=== PATIENT | female | born 1965 | race Caucasian/White ===

== ENCOUNTER 2024-08-27 09:52 | Outpatient (CLI) | payer OTHER, SELFPAY ==
--- NOTE | ~2024-08-27 | XR_ITS ---
XR abdomen/kub 1V Ordering provider: Benito Mendenhall MD History: . Right ureteral stone . Comparison: None. FINDINGS: BOWEL: Nonobstructive bowel gas pattern. Fecal material is loaded in the colon. ORGANOMEGALY: None. SIGNIFICANT PATHOLOGIC CALCIFICATIONS: None. OTHER: No free air is seen under the diaphragm. Dextroscoliosis. Degenerative changes of the spine. IMPRESSION: NO ACUTE ABDOMINAL FINDINGS. Constipation. Reviewed, dictated and finalized at location A.
== END 2024-08-27 09:53 | disposition home or self-care (01) ==
PROVIDERS: PCP Urology; Visit Provider Urology
DX: N20.1 Calculus of ureter (principal); K59.00 Constipation, unspecified
CPT/HCPCS: 74018

== ENCOUNTER 2024-09-08 19:41 | Observation (INO) | payer OTHER, SELFPAY ==
--- NOTE | ~2024-09-08 | CT_ITS ---
EXAMINATION: CT abdomen pelvis wo con DATE: 09/08/2024 20:39 INDICATION: Right abdominal pain and right flank pain. TECHNIQUE: Computed tomography (CT) of the abdomen and pelvis was performed without intravenous contr ast. Automated exposure control and iterative reconstruction technique were employed. The dose-length product was 478.89 mGy-cm. COMPARISON: None FINDINGS: Lung bases are clear. Heart size is normal. No pericardial or pleural effusion. Liver, gallbladder, s pleen, pancreas, bilateral adrenal glands and left kidney are normal. 4 mm and 3 mm obstructing stone s in the proximal right ureter with more proximal mild right hydroureteronephrosis and perinephric st randing. There is moderate sigmoid diverticulosis without adjacent inflammatory change to suggest div erticulitis. Small bowel and appendix are normal. 2 cm left adnexal cyst/follicle. Decompressed blad jt, anteverted uterus and right adnexa are unremarkable. No free intraperitoneal gas or fluid. No pa thologically enlarged abdominal or pelvic lymphadenopathy. Mild lumbar dextroscoliosis with moderate lumbar and lower thoracic spondylosis and severe and lower lumbar facet osteoarthritis. IMPRESSION: 1. Obstructing 4 mm and 3 mm stones in the proximal right ureter with mild and right hydroureteroneph rosis. Correlate with urinalysis to exclude associated ascending urinary tract infection. Reviewed, dictated and finalized at location A. IMPRESSION: 1. Obstructing 4 mm and 3 mm stones in the proximal right ureter with mild and right hydroureteronephrosis. Correlate with urinalysis to exclude associated as cending urinary tract infection.
--- NOTE | ~2024-09-08 | XR_ITS ---
EXAMINATION: XR retrograde pyelo w/stent RT DATE: 09/09/2024 13:21 INDICATION: Right internal ureteral stent placement TECHNIQUE: Fluoroscopic images from a right internal ureteral stent placement are submitted for jewels colby 199 seconds of fluoroscopy time. FINDINGS: There is a right double-J internal ureteral stent projecting in expected position, with proximal [place] loop at the level of the renal pelvis and distal loop in the pelvis within the bladder lumen. IMPRESSION: 1. Right internal ureteral stent placement. Please refer to real-time procedural findings for elton ls. Reviewed, dictated and finalized at location B. IMPRESSION: 1. Right internal ureteral stent placement. Please refer to real-time procedu ral findings for details.
--- OUTSIDE RECORDS SUMMARY | 2024-09-08 19:44 | XMS_ITS | Encounter Summary ---
Author Organization [facility] Address [facility] [place] [address] Care Team Providers Care Loan Funder Name Role Phone Chanelle Martinez EILEEN Primary Care Provider Encounter Details Date Type Department Care Team ([facility] st Contact Info) Description 09/01/2024 Results Follow-Up [facility] [address] [place] [address] Lizzy Garcia, SHEET METAL CONTRACTOR [address] [place] [address] VAGINITIS SCREEN (VDS) Social History Tobacco Use Types Packs/Day Years Used Date Smoking Tobacco: Former Cigarettes 1 32 Smokeless Tobacco: Never 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 Alcohol Use Standard Drinks/Week Comments No 0 (1 standard drink = 0.6 oz pur e alcohol) B1300 Health Literacy Answer Date Recor ded How often do you need to hav e someone help you when you read instructions, pamphlets, or other written material from your doctor or pharmacy? Never 03/19/2024 [facility] Utilities Answer Date Recorded In the past 12 months has e [employer], gas, oil, or water company threatened to shut off services in your home? No 03/19/2024 Humiliation, Afraid, Rape, and Kick questionnair e Answer Date Recorded Within the last year, have y ou been afraid of your partner or ex-partner? No 03/19/2024 Within the last year, have y ou been humiliated or emotionally abused in other ways by your partner or ex-partner? No Within the last year, have y ou been kicked, hit, slapped, or otherwise physically hurt by your partner or ex-partner? No 03/19/2024 Within the last year, have y ou been raped or forced to have any kind of sexual activity by your partner or ex-partner? No 03/19/2024 Social Connection and Isolat ion Panel [NHANES] Answer Date Recorded In a typical week, how many times do you talk on the phone with family, friends, or neighbors? More than three times a week 03/19/2024 How often do you get togethe r with friends or relatives? More than three times a week 03/19/2024 How often do you attend chur or synagogue services? Never 03/19/2024 Do you belong to any clubs o r organizations such as shinto groups, unions, fraternal or athletic groups, or school groups? No 03/19/2024 How often do you attend meet ings of the clubs or organizations you belong to? Never 03/19/2024 Are you , , di vorced, , never , or living with a partner? 03/19/2024 AUDIT-C Answer Date Recorded Q1: How often do you have a drink containing alcohol? Never 03/19/2024 Q2: How many drinks containi ng alcohol do you have on a typical day when you are drinking? Patient does not drink Q3: How often do you have si x or more drinks on one occasion? Never 03/19/2024 Overall Financial Resource Strain (CARDIA) Answe r Date Recorded How hard is it for you to pa y for the very basics like food, housing, medical care, and heating? Not hard at all 03/19/2024 PHQ-2 Answer Date Recorded Patient Health Questionnaire-2 Score 0 05/28/2024 [facility] - Occupational Stress Questionnaire Answer Date Recorded Do you feel stress - tense, restless, nervous, or anxious, or unable to sleep at night because your mind is troubled all the time - these days? Only a little 03/19/2024 Exercise Vital Sign Answer Date Recorde d On average, how many days pe r week do you engage in moderate to strenuous exercise (like a brisk walk)? 0 days 03/19/2024 On average, how many minutes do you engage in exercise at this level? 0 min 03/19/2024 Hunger Vital Sign Answer Date Recorded Within the past 12 months, y ou worried that your food would run out before you got the money to buy more. Never true 03/19/19 25 Within the past 12 months, t he food you bought just didn't last and you didn't have money to get more. Never true 03/19/2024 PRAPARE - Transportation Answer Date Re corded In the past 12 months, has l ack of transportation kept you from medical appointments or from getting medications? No 02/26 In the past 12 months, has l ack of transportation kept you from meetings, work, or from getting things needed for daily living? No 03/19/2024 Housing Stability Vital Sign Answer Artie e Recorded In the last 12 months, was t here a time when you were not able to pay the mortgage or rent on time? No 03/19/2024 In the past 12 months, how m any times have you moved where you were living? 0 03/19/2024 At any time in the past 12 m [facility], were you homeless or living in a group home (including now)? No 03/19/2024 Comments No Sex and Gender Information Value Date Recorded Sex Assigned at Female 03/19/2024 11:21 AM [employer] Sex Female 8:23 PM CDT Gender Identity Female 06/16/2024 2:23 PM CDT Sexual Orientation Not on file documented as of this encounter Functional Status * Are you deaf or do you have serious difficulty hearing Answer Date of Assessment Author Status No 03/25/2024 11:00 AM Yun Burk R N Active * Are you blind or do you have serious difficulty seeing, even when wearing glasses? Answer Date of Assessment Author Status No 03/25/2024 11:00 AM Yun Burk R N Active * Do you have serious difficulty walking or climbing stairs? Answer Date of Assessment Author Status No 03/25/2024 11:00 AM Yun Burk R N Active * Do you have difficulty dressing or bathing? Answer Date of Assessment Author Status No 03/25/2024 11:00 AM BRE[employer]OSS Yun Leiva R N Active * Because of a physical, mental, or emotional condition, do you have difficulty doing errands alone such as visiting a doctor's office or shopping? Answer Date of Assessment Author Status No 03/25/2024 11:00 AM [employer] Yun Leiva R N Active documented as of this encounter Mental Status * Because of a physical, mental, or emotional condition, do you have serious difficulty concentrating, remembering, or making decisions? Answer Entry Date Author Status No 03/25/2024 11:00 AM [employer] Yun Leiva R N Active documented in this encounter Progress Notes * Mila Stark MA - 09/01/2024 8:14 AM CDT Pt notified. Verbalized understanding. See message from provider, rx was sent. documented in this encounter Plan of Treatment Upcoming Encounters Date Type Department Care Team (Late st Contact Info) Description 10/07/2024 4:00 PM CDT Office Visit [facility] [address] [facility] [place] [address] Chanelle Martinez FNP [address] [place] [address] [place] [id number] documented as of this encounter Visit Diagnoses Diagnosis Bacterial vaginosis- Primary Vaginitis and vulvovaginitis, unspecified documented in this encounter Additional Health Concerns Assessment Noted Time PHQ-9 Depression Total Score: 1 02/04/20 21 9:50 AM [employer] documented as of this encounter Care Teams Loan Funder Relationship Specialty Start Date End Date Chanelle Martinez FNP [address] [place] [address] [place] [id number] PCP - General Nurse Practitioner Family 01/10/18 documented as of this encounter
--- OUTSIDE RECORDS SUMMARY | 2024-09-08 19:44 | XMS_ITS | Clinical Summary ---
Author Organization [facility] Address [facility] [place] [address] Care Team Providers Care Senior Client Advisor Name Role Phone Chanelle Martinez INSTRUCTOR OF EDUCATION Primary Care Provider [phone] Allergies Active Allergy Reactions Criticality Noted Date Comments Sulfa Antibiotics Unknown 07/06/2011 Medications loratadine 10 MG tablet Take 1 tablet (10 mg total) by mouth daily. Active Potassium 99 MG tabletIndication s:care home current use of diuretic Take 1 tablet by mouth daily. 90 tablet 1 11/23/19 22 Active Cimetidine 800 MG TabIndications:U rticaria, chronic Take 1 tablet by mouth 2 (two) times a day. 180 tablet 1 11/24/19 23 Active furosemide (LASIX) 20 MG tabletIndication s:Bilateral leg edema Take one tab daily as needed for ankle swelling 90 tablet 1 11/24/19 23 Active budesonide-glyco pyrrolate-formot jamel (BREZTRI AEROSPHERE) 160-9-4.8 MCG/ACT inhalerIndicatio ns:Centrilobular emphysema (CMS/HCC HHS/HCC) Inhale 2 puffs into the lungs daily. 10.7 g 5 01/21/20 24 Active Multiple Vitamin (MULTIVITAMIN ADULT OR) Take 1 tablet by mouth daily. Active ferrous sulfate, 65 mg elemental, 325 (65 FE) MG tablet Take 1 tablet (325 mg total) by mouth daily as needed. Active probiotic (FLORAJEN3) Cap capsuleIndicatio ns:Pneumonia due to infectious organism, unspecified laterality, unspecified part of lung Take 1 capsule by mouth daily with breakfast. 10 capsule 03/27/19 25 Active albuterol sulfate HFA (VENTOLIN HFA) 108 (90 Base) MCG/ACT inhalerIndicatio ns:Mild intermittent reactive airway disease without complication (HHS/HCC) Inhale 1-2 puffs into the lungs every 6 (six) hours as needed for Wheezing. 18 g 03/31/19 25 Active NEBULIZER DEVICE, DME,Indications: Pneumonia of both lower lobes due to infectious organism Take 1 Device by nebulization every 4 (four) hours as needed. 1 Device 1 04/28/19 25 Active ipratropium-albu terol (DUONEB) 0.5-2.5 (3) MG/3ML SolutionIndicati ons:Pneumonia of both lower lobes due to infectious organism Take 3 mLs by nebulization every 4 (four) hours as needed. 360 mL 11 04/28/19 25 Active atorvastatin (LIPITOR) 20 MG tabletIndication s:Hyperlipidemia Take 1 tablet (20 mg total) by mouth nightly at bedtime. 90 tablet 3 07/01/19 25 Active lisinopril (PRINIVIL) 2.5 MG tabletIndication s:Primary hypertension Take 1 tablet (2.5 mg total) by mouth daily. 90 tablet 07/08/19 25 Active tamsulosin (FLOMAX) 0.4 MG Cap Take 1 capsule (0.4 mg total) by mouth daily. 15 capsule 08/22/19 25 Active ondansetron (ZOFRAN) 4 MG tablet Take 1 tablet (4 mg total) by mouth every 8 (eight) hours as needed for Nausea. 15 tablet 08/22/19 25 Active omeprazole (PRILOSEC) 40 MG capsuleIndicatio ns:Hiatal hernia with GERD Take 1 capsule (40 mg total) by mouth daily. 60 capsule 09/01/19 25 Active metroNIDAZOLE (FLAGYL) 500 MG tabletIndication s:Bacterial vaginosis Take 1 tablet (500 mg total) by mouth 2 (two) times a day for 7 days. 14 tablet 09/02/19 25 025 Active omeprazole (PRILOSEC) 20 MG capsule Take 2 capsules (40 mg total) by mouth daily. 025 Discontinu ed(Reorder ) HYDROcodone-acet aminophen (NORCO) 5-325 MG tabletIndication s:Acute Pain < 7 Day Supply Take 1-2 tablets by mouth every 8 (eight) hours as needed for Pain. Indications: Acute Pain < 7 Day Supply 25 tablet 08/22/19 25 025 cefdinir (OMNICEF) 300 MG Cap capsule Take 1 capsule (300 mg total) by mouth 2 (two) times daily for 7 days. 14 capsule 08/22/19 25 025 fluconazole (DIFLUCAN) 150 MG tabletIndication s:Acute vaginitis Take 1 tablet (150 mg total) by mouth every third day for 2 doses. 2 tablet 09/01/19 25 025 Active Problems Problem Noted Date Diagnosed Date Mixed hyperlipidemia 07/07/2024 Primary hypertension 07/07/2024 Pneumonia 03/25/2024 COVID 03/19/2024 Chronic bilateral low back pain without sciatica 2020 Mild intermittent reactive a irway disease without complication ([facility]) 2020 Urticaria, chronic 04/11/2018 Asthma ([facility]) 04/11/2018 Hot flashes due to menopause 04/11/2018 Class 2 obesity due to exces s calories with body mass index (BMI) of 36.0 to 36.9 in adult 07/06/2011 COPD (chronic obstructive pu lmonary disease) with emphysema ([facility]) Resolved Problems Problem Noted Date Diagnosed Date Resolved Date Tobacco abuse 11/07/2012 10/27/2021 Overview (04/11/2018): Date Onset: 11/07/2012 Hypothyroidism 07/06/2011 03/09/2020 Encounters Date Type Department Care Team Description 09/01/2024 6:39 AM CDT - 09/01/2024 11:59 PM CDT Hospital Encounter [facility] [address] [place] [address] Elise Diallo MD Discharge Disposition: Home or Self Care (Routine Discharge) 09/01/2024 Results Follow-Up [facility] [address] [place] [address] Lizzy Garcia APRN VAGINITIS SCREEN (VDS) 08/31/2024 10:28 AM CDT - 08/31/2024 11:59 PM CDT Hospital Encounter [facility] [address] [place] [address] Lizzy Garcia APRN Discharge Disposition: Home or Self Care (Routine Discharge) 08/31/2024 8:40 AM CDT Office Visit [facility] [address] [place] [address] Lizzy Garcia APRN Vaginal Problem (Hope is here today for possible yeast infection. She has been on antibiotics recently for kidney stones. She states this always happens when she takes antibiotics. Symptoms began Saturday. She has vaginal itching and some burning. There is a little discharge as well./-nkw) 08/31/2024 Orders Only [facility] [address] [place] [address] Lizzy Garcia APRN 08/31/2024 Travel 08/25/2024 Telephone [facility] [address] [place] [address] Chanelle Martinez FNP Follow Up Call 08/21/2024 3:37 PM CDT - 08/21/2024 7:30 PM CDT Emergency [facility] [address] [place] [address] Brice Pittman MD Abdominal Pain Discharge Disposition: Home or Self Care (Routine Discharge) 08/21/2024 Travel 07/14/2024 Telephone [facility] [address] [place] [address] Chanelle Martinez FNP Hair/Scalp Problem 07/07/2024 3:40 PM CDT Office Visit [facility] [address] [place] [address] Chanelle Martinez FNP Follow Up (3 week follow up/Would also like to discuss issues when she consumes milk and eggs) 07/07/2024 Travel 06/29/2024 Results Follow-Up [facility] [address] [place] [address] Chanelle Martinez FNP CBC W/DIFF AUTOMATED, COMPREHENSIVE METABOLIC PANEL, LIPID PANEL, Additional followed-up results: 2 06/27/2024 7:22 AM CDT - 06/27/2024 11:59 PM CDT Hospital Encounter [facility] [address] [place] [address] Chanelle Martinez FNP Discharge Disposition: Home or Self Care (Routine Discharge) 06/27/2024 Travel 06/16/2024 2:20 PM CDT Office Visit [facility] [address] [place] [address] Chanelle Martinez FNP Follow Up (2w on BP/) 06/16/2024 Travel from Last 3 Months Immunizations Immunization Administration Dates Next Due Fluzone (IIV3, Trivalent, 0. 5 ML Prefilled Syringe) 03/20/2024 Fluzone 6 Months+ Quad (0.5 mL Prefilled Syringe) 11/23/2022 Influenza (Generic) 12/07/2019, 7,12/22/2014,2013,12/17/2012 Influenza Adult (Generic) 01/04/2021,12/07/2019 MODERNA COVID-19 (12+) MRNA, LNP-S, PF, 100 MCG/ 0.5 ML DOSE 06/14/2020,05/17/2020 Pneumococcal (Pneumovax 23) 03/09/2020 Family History Medical History Relation Comments Asthma Father COPD Father Diabetes Mother Hypertension Mother Breast Cancer Paternal Aunt Breast Cancer Paternal Grandmother Relation Status Comments Father Alive Mother Alive Paternal Aunt Paternal Grandmother Social History Tobacco Use Types Packs/Day Years Used Date Smoking Tobacco: Former Cigarettes 1 32 Smokeless Tobacco: Never Tobacco Cessation:Counseling Given: No Comments:Provider to tour counselor. 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 Alcohol Use Standard Drinks/Week Comments No 0 (1 standard drink = 0.6 oz pur e alcohol) B1300 Health Literacy Answer Date Recor ded How often do you need to hav e someone help you when you read instructions, pamphlets, or other written material from your doctor or pharmacy? Never 03/19/2024 [facility] Utilities Answer Date Recorded In the past 12 months has e [employer], [employer], oil, or water [employer] threatened to shut off services in your [...] 03/19/2024 How often do you attend chur ch or sikhism services? Never 03/19/2024 Do you belong to any clubs o r organizations such as druze groups, unions, fraternal or athletic groups, or [...] Recorded Patient Health Questionnaire-2 Score 0 05/28/2024 [facility] Occupational Stress Questionnaire Answer Date Recorded [...] any time in the past 12 m [facility], were you homeless or living in a senior living (including now)? No 03/19/2024 Comments No Sex and Gender Information Value Date Recorded Sex Assigned at Female 03/19/2024 11:21 AM [employer] Legal Sex Female 8:23 PM CDT Gender Identity Female 06/16/2024 2:23 PM CDT Sexual Orientation Not on file Last Filed Vital Signs Vital Sign Reading Time Taken Comments Blood Pressure 118/66 08/31/2024 8:57 AM CDT Pulse 86 08/31/2024 8:57 AM CDT Temperature 36.6 C (97.9 F) 08/31/2024 8:57 AM CDT Respiratory Rate 16 08/31/2024 8:57 AM CDT Oxygen Saturation 96% 08/31/2024 8:57 AM CDT Inhaled Oxygen Concentration - - Weight 99.3 kg (219 lb) 08/31/2024 8:57 AM CDT Height 170.2 cm (5' 7) 08/31/2024 8:57 AM CDT Body Mass Index 34.3 08/31/2024 8:57 AM CDT Plan of Treatment Upcoming Encounters Date Type Department Care Team (Late st Contact Info) Description 10/07/2024 4:00 PM CDT Office Visit [facility] [address] [place] [address] Chanelle Martinez, [facility] [address] [place] [id number] Health Maintenance Due Date Last Done Comments Annual Physical 1968 Hepatitis C 11/09/1983 DTaP, Tdap and Td Vaccines ( 1 - Tdap) 1984 Hepatitis B Vaccines (1 of 3 - 19+ 3-dose series) 1984 Cervical Cancer Screening Pa p with HPV Testing (Age 30 to 64) Every 5 Years 11/09/1995 Cervical Cancer Screening Pa p Smear (Age 30 to 64) Every 3 Years 03/27/2015 03/27/2012 Cervical Cancer Screening wi th HPV 03/27/2015 Lung Cancer Screening 11/09/2015 Zoster Vaccines (1 of 2) 11/09/2015 Pneumococcal Vaccine: 50+ Years (2 of 2 - PCV) 03/09/2021 03/09/2020 COVID-19 Vaccine (2023-2 5 season) 2023 12/22/2020, 06/14/2020, 05/17/2020 Colorectal Cancer Screening FIT-DNA (3 Years) 02/11/2024 02/10/2021, 02/10/2021 Mammogram Screening 12/14/2024 12/14/2022 PHQ-2 (Physician Hancock) Completed 05/28/2024 Meningococcal B Vaccine Aged Out No l onger eligible based on patient's age to complete this topic Meningococcal Vaccine Aged Out No sara hellen eligible based on patient's age to complete this topic RSV Immunizations Under 20 Months Aged Out No longer eligible b ased on patient's age to complete this topic Procedures Procedure Name Priority Date/Time Associated Diagnosis Comments CT ABD+PEL WO CON STAT 09/01/2024 6:4 9 AM CDT Right ureteral stone VAGINITIS SCREEN (VDS) Routine 08/31/2024 9:09 AM CDT Vaginal itching URINE BACTERIA CULTURE Routine 08/21/2024 6:35 PM CDT URINALYSIS MICRO ONLY Routine 08/21/2024 6:35 PM CDT URINALYSIS AUTO DIP STAT 08/21/2024 6 [address] ABD+PEL WO CON STAT 08/21/2024 4:3 3 PM CDT XR CHEST PORTABLE STAT 08/21/2024 4:3 3 PM CDT LIPASE STAT 08/21/2024 3:43 PM CDT COMPREHENSIVE METABOLIC PANEL STAT 08/21/2024 3:43 PM CDT CBC W/DIFF AUTOMATED STAT 08/21/2024 3:43 PM CDT VITAMIN D, 25 OH Routine 06/27/2024 7:30 AM CDT Primary hypertension THYROID STIM HORMONE TSH Routine 06/27/2024 7:30 AM CDT Primary hypertension LIPID PANEL Routine 06/27/2024 7:30 AM CDT Primary hypertension COMPREHENSIVE METABOLIC PANEL Routine 06/27/2024 7:30 AM CDT Primary hypertension CBC W/DIFF AUTOMATED Routine 06/27/2024 7:30 AM CDT Primary hypertension MG SCREENING W ARIADNA GAIL DIGI Routine 12/14/2022 2:48 PM CDT Breast cancer screening by mammogram COLOGUARD (EXACT SCIENCE) Routine 02/10/2021 6:10 AM CASINO CASHIER Colon cancer screening THINPREP IMAGING PAP REFLEX HPV MRNA E6/E7 Routine 03/27/2012 9:15 AM CASINO CASHIER from Last 3 Months or Most Recently Relevant to Health Maintenance Results * CT ABD+PEL WO CON (09/01/2024 6:49 AM CDT) Only the most recent of2 resultswithin the time period is included. Anatomical Region Laterality Modality Abdomen Computed Tomogra phy 09/01/2024 6:51 AM CDT Impressions 09/01/2024 6:55 AM CDT IMPRESSION: Minimal right hydronephrosis, decreased compared to the prior examination. 6 mm stone in the proximal right ureter, unchanged in location from the prior exam. Referred By: ELISE DIALLO Interpreted By: Benjamin Freed MD, 09/01/2024 6:51 AM Narrative 09/01/2024 6:55 AM CDT [address] [place] [address] EXAMINATION: CT ABDOMEN/PELVIS WITHOUT CONTRAST INDICATION: Right ureteral stone COMPARISON: 08/21/2024 TECHNIQUE: Computed tomography of the abdomen, and pelvis was performed without administration of intravenous contrast. Sagittal and coronal reconstructions. Radiation dose reduction technique(s) were used. FINDINGS: Lower Chest: Lung bases are clear. No cardiomegaly or pericardial effusion. Tiny hiatal hernia. Upper abdominal organs: The liver is normal in size and configuration. There is no splenomegaly. There is no peripancreatic inflammation. There is no definite cholelithiasis. There are no adrenal masses. Right hydronephrosis, decreased compared to the prior examination. 6 mm stone in the proximal right ureter, unchanged in location from the prior exam. Vascular: The abdominal aorta is normal in caliber. Lymph nodes: No retroperitoneal, mesenteric, or inguinal lymphadenopathy. Gastrointestinal: No bowel obstruction or bowel wall thickening. Colonic diverticulosis. The appendix is normal. Miscellaneous: No free intraperitoneal air or ascites. Pelvis: No free pelvic fluid. The urinary bladder is normal. The uterus and adnexa are within normal limits. Musculoskeletal: No acute osseous abnormality or destructive bone lesions. Sclerosis of the anterior inferior right SI joint with degenerative changes. Procedure Note Benjamin Freed MD - 09/01/[address] [place] [address] EXAMINATION: CT ABDOMEN/PELVIS WITHOUT CONTRAST INDICATION: Right ureteral stone COMPARISON: 08/21/2024 TECHNIQUE: Computed tomography of the abdomen, and pelvis was performedwithout administration of intravenous contrast. Sagittal and coronalreconstructions. Radiation dose reduction technique(s) were used. FINDINGS: Lower Chest: Lung bases are clear. No cardiomegaly or pericardialeffusion. Tiny hiatal hernia. Upper abdominal organs: The liver is normal in size and configuration.There is no splenomegaly. There is no peripancreatic inflammation. Thereis no definite cholelithiasis. There are no adrenal masses. Righthydronephrosis, decreased compared to the prior examination. 6 mm stonein the proximal right ureter, unchanged in location from the prior exam. Vascular: The abdominal aorta is normal in caliber. Lymph nodes: No retroperitoneal, mesenteric, or inguinallymphadenopathy. Gastrointestinal: No bowel obstruction or bowel wall thickening. Colonicdiverticulosis. The appendix is normal. Miscellaneous: No free intraperitoneal air or ascites. Pelvis: No free pelvic fluid. The urinary bladder is normal. The uterusand adnexa are within normal limits. Musculoskeletal: No acute osseous abnormality or destructive bone lesions.Sclerosis of the anterior inferior right SI joint with degenerativechanges. IMPRESSION: Minimal right hydronephrosis, decreased compared to the prior examination.6 mm stone in the proximal right ureter, unchanged in location from theprior exam. Referred By: ELISE DIALLO Interpreted By: Benjamin Freed MD, 09/01/2024 6:51 AM us Elise Diallo MD CT Final Result * VAGINITIS SCREEN (VDS) (08/31/2024 9:09 AM CDT) SOURCE VAGINAL SPECIMEN 08/31/2024 7:13 PM CDT [facility] TRICHOMONAS NEGATIVE 08/31/2024 7:13 PM CDT [facility] Comment:NOT DETECTED BY DNA PROBE GARDNERELLA VAGINALIS POSITIVE 08/31/2024 7:13 PM CDT [facility] Comment:DETECTED BY DNA PROB E FREDI SPECIES NEGATIVE 7:13 PM CDT [facility] Comment:NOT DETECTED BY DNA PROBE VAGINAL STRUCTURE / Unknown 08/31/2024 9:09 AM CDT Lizzy Garcia APRN MICROBIOLOGY - GENERAL OR DERABLES Final Result [facility] [address] [place] [address], [id number] * (ABNORMAL) CULTURE URINE (08/21/2024 6:35 PM CDT) SPEC DESCRIPTION URINE CLEAN CATCH 08/21/2024 7:05 PM CDT [facility] SPECIAL REQUESTS NO SPECIAL REQUEST 08/21/2024 7:05 PM CDT [facility] CULTURE RESULT 50,000-100, 000 COL/ML ESCHERICHIA COLI (A) 08/24/2024 8:39 AM CDT [facility] URINE SPECIMEN OBTAINED BY CLEAN CATCH PROCEDURE / Unknown 08/21/2024 6:35 PM CDT 08/21/2024 7:11 PM CDT Narrative Organism Antibiotic Method Susceptibility Escherichia coli AMPICILLIN DENIS (VITEK) 4: Sensitive Escherichia coli AMPICILLIN/SULBACTAM DENIS (VITEK) <=2: Sensitive Escherichia coli CEFTRIAXONE DENIS (VITEK) <=1: Sensitive Escherichia coli CEFTAZIDIME DENIS (VITEK) <=1: Sensitive Escherichia coli CEFAZOLIN DENIS (VITEK) <=4: Sensitive Escherichia coli ESBL DNEIS (VITEK) NEG: Sensitive Escherichia coli NITROFURANTOIN DENIS (VITEK) <=16: Sensitive Escherichia coli GENTAMICIN DENIS (VITEK) <=1: Sensitive Escherichia coli LEVOFLOXACIN DENIS (VITEK) <=0.12: Sensitive Escherichia coli PIPRACIL/TAZO DENIS (VITEK) <=4: Sensitive Escherichia coli TRIMETH-SULFAMETH. DENIS (VITEK) <=20: Sensitive Brice Pittman MD MICROBIOLOGY - GENERAL [facility] Final Result [facility] [address] [place] [address], [facility] [address] [place] [address] [place] [address], [place] * (ABNORMAL) URINALYSIS AUTO DIP (08/21/2024 6:35 PM CDT) COLOR (U) YELLOW YELLOW 08/21/2024 6:47 PM CDT [facility] TRANSPARENCY HAZY(A) CLEAR 08/21/2024 6:47 PM CDT [facility] SPECIFIC GRAVITY (U) 1.023 1.001 - 1.030 08/21/2024 6:47 PM CDT [facility] U PH 5.5 5.0 - 9.0 08/21/2024 6:47 PM CDT [facility] LEUKOCYTES (U) 4+(A) NEGATIVE 08/21/2024 6:47 PM CDT [facility] NITRITES NEGATIVE NEGATIVE 08/21/2024 6:47 PM CDT [facility] PROTEIN RANDOM (U) 1+(A) NEGATIVE 08/21/2024 6:47 PM CDT [facility] GLUCOSE (U) NORMAL NORMAL 08/21/2024 6:47 PM CDT [facility] KETONES MG/DL (U) NEGATIVE NEGATIVE 08/21/2024 6:47 PM CDT [facility] UROBILINOGEN NORMAL NORMAL EU/DL 08/21/2024 6:47 PM CDT [facility] BILIRUBIN (U) NEGATIVE NEGATIVE 08/21/2024 6:47 PM CDT [facility] BLOOD (U) NEGATIVE NEGATIVE 08/21/2024 6:47 PM CDT [facility] URINE MICROSCOPIC URINE MICROSCOPIC TO FOLLOW. 08/21/2024 6:47 PM CDT [facility] URINE SPECIMEN OBTAINED BY CLEAN CATCH PROCEDURE / Unknown 08/21/2024 6:35 PM CDT Brice Pittman MD URINE ORDERABLES Final Resu lt Performing Organization Address City/[facility]/ZIP Co de Phone Number [facility] [address] [place] [address], [place] * (ABNORMAL) URINALYSIS MICRO ONLY (08/21/2024 6:35 PM CDT) WBC/HPF >100(H) <6 /HPF 08/22/2024 12:02 PM CDT [facility] RBC/HPF 8(H) <6 /HPF 08/22/2024 12:02 PM CDT [facility] MUCUS MODERATE /LPF 08/22/2024 12:02 PM CDT [facility] CA OXALATE CRYSTALS RARE /HPF 08/22/2024 12:02 PM CDT [facility] SQUAMOUS EPITHELIALS RARE /HPF 08/22/2024 12:02 PM CDT [facility] 08/21/2024 6:35 PM CDT Brice Pittman MD URINE ORDERABLES Final Resu lt [facility] [address] [place] [address], [place] [phone] * XR CHEST PORTABLE (08/21/2024 4:33 PM CDT) Anatomical Region Laterality Modality Chest Computed Tomogra phy 08/21/2024 5:13 PM CDT Impressions 08/21/2024 5:14 PM CDT Impression: No acute findings. Referred By: Interpreted By: Mehul Lerner MD, 08/21/2024 5:13 PM Narrative 08/21/2024 5:14 PM CDT [address] [place] [address] Examination: Chest 1 view portable History: Right upper quadrant pain DATE/TIME: 08/21/2024 4:19 PM Comparison: 03/25/2024 Technique: AP portable view of the chest was obtained. Findings: Heart size, mediastinal contours and pulmonary vasculature are within normal limits. No pulmonary consolidation, pleural effusion or pneumothorax. No acute osseous abnormality. Thoracic spondylosis. Procedure Note Mehul Lerner MD - 08/21/[address] [place] [address] Examination: Chest 1 view portable History: Right upper quadrant pain DATE/TIME: 08/21/2024 4:19 PM Comparison: 03/25/2024 Technique: AP portable view of the chest was obtained. Findings: Heart size, mediastinal contours and pulmonary vasculature arewithin normal limits. No pulmonary consolidation, pleural effusion orpneumothorax. No acute osseous abnormality. Thoracic spondylosis. Impression: No acute findings. Referred By: Interpreted By: Mehul Lerner MD, 08/21/2024 5:13 PM Brice Pittman MD GENERAL IMAGING Final Resul t * (ABNORMAL) COMPREHENSIVE METABOLIC PANEL (08/21/2024 3:43 PM CDT) Only the most recent of2 resultswithin the time period is included. GLUCOSE 96 70 - 99 MG/DL 08/21/2024 4:53 PM CDT [facility] BUN 9 7 - 18 MG/DL 08/21/2024 4:53 PM CDT [facility] CREATININE S/P/B 1.00 0.50 - 1.20 MG/DL 08/21/2024 4:53 PM CDT [facility] SODIUM S/P/B 140 136 - 145 MMOL/L 08/21/2024 4:53 PM CDT [facility] POTASSIUM S/P/B 4.0 3.5 - 5.1 MMOL/L 08/21/2024 4:53 PM CDT [facility] CHLORIDE S/P/B 104 100 - 108 MMOL/L 08/21/2024 4:53 PM CDT [facility] CO2 31.0 21.0 - 32.0 MMOL/L 08/21/2024 4:53 PM CDT [facility] CALCIUM S/P/B 8.7 8.5 - 10.1 MG/DL 08/21/2024 4:53 PM CDT [facility] BILIRUBIN TOTAL S/P/B 0.3 0.2 - 1.2 MG/DL 08/21/2024 4:53 PM CDT [facility] Comment: THIS ASSAY IS NOT RECOMMENDED FOR PATIENTS UNDERGOING TREATMENT WITH ELTROMBOPAG DUE TO THE POTENTIAL FOR FALSELY ELEVATED RESULTS. TOTAL PROTEIN S/P/B 6.9 6.4 - 8.2 G/DL 08/21/2024 4:53 PM CDT [facility] ALBUMIN S/P/B 4.1 3.4 - 5.0 G/DL 08/21/2024 4:53 PM CDT [facility] AST 21 15 - 37 U/L 08/21/2024 4:53 PM CDT [facility] ALT 31 14 - 55 U/L 08/21/2024 4:53 PM CDT [facility] ALKALINE PHOSPHATASE S/P/B 104 50 - 136 U/L 08/21/2024 4:53 PM CDT [facility] ANION GAP 5.0 5.0 - 15.0 MMOL/L 08/21/2024 4:53 PM CDT [facility] BUN CREATININE RATIO 9.0 6 - 26 08/21/2024 4:53 PM CDT [facility] A/G RATIO 1.5 1.0 - 2.5 RATIO 08/21/2024 4:53 PM CDT [facility] GFR ESTIMATE 65(L) >90 ML/MIN/1.7 3 M2 08/21/2024 4:53 PM CDT [facility] Comment: NOTE: eGFR is not calculated for patients <18 years of age. This is an estimated GFR calculation using the new CKD EPI creatinine equation without race and so does not require a correction factor for race. This estimated GFR should not be used for calculating drug doses. 08/21/2024 3:43 PM CDT us Brice Pittman MD LABORATORY Final Resul t [address] [address], * (ABNORMAL) CBC W/DIFF AUTOMATED (08/21/2024 3:43 PM CDT) Only the most recent of2 resultswithin the time period is included. WBC 8.85 4.50 - 11.00 x10'3/uL 08/21/2024 4:35 PM CDT [facility] RBC 4.41 4.00 - 5.20 x10'6/uL 08/21/2024 4:35 PM CDT [facility] HGB 13.1 12.0 - 16.0 G/DL 08/21/2024 4:35 PM CDT [facility] HCT 41.0 38.0 - 48.0 % 08/21/2024 4:35 PM CDT [facility] MCV 93.0 80.0 - 100.0 FL 08/21/2024 4:35 PM CDT [facility] MCH 29.7 26.0 - 34.0 PG 08/21/2024 4:35 PM CDT [facility] MCHC 32.0 31.0 - 37.0 G/DL 08/21/2024 4:35 PM CDT [facility] RDW 12.9 11.6 - 14.8 % 08/21/2024 4:35 PM CDT [facility] PLT 465(H) 130 - 400 x10'3/uL 08/21/2024 4:35 PM CDT [facility] MPV 10.0 7.0 - 12.0 FL 08/21/2024 4:35 PM CDT [facility] CBC COMMENT AUTOMATED RBC MORPHOLOGY AND PLATELET EVALUATION NORMAL 08/21/2024 4:35 PM CDT [facility] NEUTROPHILS % 54.6 40.0 - 74.0 % 08/21/2024 4:35 PM CDT [facility] LYMPHOCYTES % 27.5 14.0 - 46.0 % 08/21/2024 4:35 PM CDT [facility] MONOCYTES % 12.1 4.0 - 13.0 % 08/21/2024 4:35 PM CDT [facility] EOSINOPHILS 4.5 0.0 - 7.0 % 08/21/2024 4:35 PM CDT [facility] BASOPHILS 0.8 0.0 - 3.0 % 08/21/2024 4:35 PM CDT [facility] IMMATURE GRANS % 0.5(H) 0.0 - 0.43 % 08/21/2024 4:35 PM CDT [facility] NRBC % 0.0 % 08/21/2024 4:35 PM CDT [facility] ABS. NEUTROPHILS TOTAL 4.84 1.69 - 7.81 x10'3/uL 08/21/2024 4:35 PM CDT [facility] ABS. LYMPHOCYTES 2.43 0.21 - 5.42 x10'3/uL 08/21/2024 4:35 PM CDT [facility] ABS. MONOCYTES 1.07 0.04 - 1.37 x10'3/uL 08/21/2024 4:35 PM CDT [facility] ABS. EOSINOPHILS 0.40 0.00 - 0.68 x10'3/uL 08/21/2024 4:35 PM CDT [facility] ABS. BASOPHILS 0.07 0.00 - 0.08 x10'3/uL 08/21/2024 4:35 PM CDT [facility] ABS. IMMATURE GRANULOCYTES 0.04 0.00 - 0.06 x10'3/uL 08/21/2024 4:35 PM CDT [facility] ABS. NUCLEATED RBC'S 0.00 0.00 - 0.01 x10'3/uL 08/21/2024 4:35 PM CDT [facility] 08/21/2024 3:43 PM CDT Brice Pittman MD LABORATORY Final Resul t Performing Organization Address [facility] Co de Phone Number [facility] [address] [facility] [place] [address], [place] * LIPASE (08/21/2024 3:43 PM CDT) Pathologist [facility] LIPASE 24 16 - 77 UNITS/L 08/21/2024 4:53 PM CDT [facility] 08/21/2024 3:43 PM CDT us Brice Pittman MD LABORATORY Final Resul t Performing Organization Address [facility] Co de Phone Number [facility] [address] [facility] [place] [address], [place] * (ABNORMAL) LIPID PANEL (06/27/2024 7:30 AM CDT) CHOLESTEROL 211(H) <200 MG/DL 06/28/2024 12:40 PM CDT [facility] TRIGLYCERIDES 105 <150 MG/DL 06/28/2024 12:40 PM CDT [facility] HDL 59 >40.0 MG/DL 06/28/2024 12:40 PM CDT [facility] LDL (CALCULATED) 131(H) <100 MG/DL 06/28/2024 12:40 PM CDT [facility] NON HDL CHOLESTEROL 152(H) <130 MG/DL 06/28/2024 12:40 PM CDT [facility] CHOL/HDL RATIO 3.6 0.0 - 4.5 06/28/2024 12:40 PM CDT [facility] VLDL CALCULATION 21 5 - 55 MG/DL 06/28/2024 12:40 PM CDT [facility] LIPID INTERPRETATION 06/28/2024 12:40 PM CDT [facility] Comment: NIH CONCENSUS REPORT RECOMMENDATIONS: ADULT CHILD LOW RISK: CHOLESTEROL <200 <170 TRIGLYCERIDE <150 --- HDL >=60 --- LDL <100 <110 BORDERLINE: CHOLESTEROL 200-239 170-199 TRIGLYCERIDE 150-199 --- HDL 40-59 --- LDL 100-159 110-129 HIGH RISK: CHOLESTEROL >=240 >=200 TRIGLYCERIDE >=200 --- HDL <40 --- LDL >=160 >=130 06/27/2024 7:30 AM CDT Chanelle Martinez INSTRUCTOR OF EDUCATION LABORATORY Final Result [facility] [address] [place] [address], [place] [phone] * THYROID STIM HORMONE TSH (06/27/2024 7:30 AM CDT) Pathologist [facility] TSH 3.340 0.358 - 3.74 uIU/ML 06/28/2024 12:40 PM CDT [facility] Comment: HIGH DOSES OF BIOTIN MAY INTERFERE WITH THIS TEST RESULT. CORRELATION TO CLINICAL HISTORY AND PRESENTATION RECOMMENDED. 06/27/2024 7:30 AM CDT Chanelle Martinez INSTRUCTOR OF EDUCATION LABORATORY Final Result Performing Organization Address [facility] Co de Phone Number [facility] [address] [place] [address], [place] [phone] * VITAMIN D, 25 OH (06/27/2024 7:30 AM CDT) VITAMIN D 25 HYDROXY S/P/B 38 30 - 100 NG/ML 06/28/2024 12:54 PM CDT [facility] Comment: INTERPRETATION DEFICIENT <20 INSUFFICIENT 20-29 SUFFICIENT 30-100 06/27/2024 7:30 AM CDT Chanelle Martinez INSTRUCTOR OF EDUCATION LABORATORY Final Result Performing Organization Address [facility] de Phone Number [facility] [address] [place] [address], [place] [phone] * MG SCREENING W ARIADNA GAIL DIGI (12/14/2022 2:48 PM CDT) Anatomical Region Laterality Modality Breast Bilateral Computed Tomogra phy, Other 12/14/2022 5:03 PM CDT Narrative 12/14/2022 5:12 PM CDT IMAGING STUDIES: Bilateral screening mammograms with computer-aided detection with 2-D and 3-D imaging. Tomosynthesis. DATE: 12/14/2022 2:30 PM HISTORY: screening . Paternal grandmother with breast carcinoma age 60. Paternal aunt with breast carcinoma age 45 COMPARISON: 02/23/2013. 06/17/2015. TISSUE TYPE: There are scattered areas of fibroglandular density. FINDINGS: 1. Mild scattered fibroglandular tissue pattern is present. Benign nodularity 2. No malignant microcalfcifications, new dominant masses, or architectural distortion. 3. No skin thickening or nipple retraction. Axillary regions are within normal limits. IMPRESSION: 1. No mammographic evidence of malignancy. 2. Assessment: ACR BI-RADS 2 - BENIGN FINDING(S) 3 .Routine Screening Bilateral MQSA BI-RADS Categories: Category 0 - needs additional imaging evaluation. Category 1 - negative. Category 2 - benign findings. Category 3 - probably benign findings, but short interval follow-up is recommended. Category 4 - suspicious abnormality and biopsy should be considered though the lesion may well be benign. Category 5 - highly suggestive of malignancy and appropriate action should be taken. Category 6 - known biopsy-proven malignancy A) A negative report should not delay a biopsy if a dominant or clinically suspicious mass is present. B) Adenosis and dense breasts may obscure an underlying neoplasm. C) Study interpreted with computer aided detection. Ordered By: CHANELLE MARTINEZ Interpreted By: Mary Hoang, 12/14/2022 5:03 PM us Chanelle Martinez INSTRUCTOR OF EDUCATION MAMMO Final Result * COLOGUARD ([employer]) (02/10/2021 6:10 AM CASINO CASHIER) COLOGUARD RESULT Negative Negative [facility] (CLIA #:[id number]) Comment: NEGATIVE TEST RESULT. A negative Cologuard result indicates a low likelihood that a colorectal cancer (CRC) or advanced adenoma (adenomatous polyps with more advanced pre-malignant features) is present. The chance that a person with a negative Cologuard test has a colorectal cancer is less than 1 in 1500 (negative predictive value >99.9%) or has an advanced adenoma is less than 5.3% (negative predictive value 94.7%). These data are based on a prospective cross-sectional study of 10,000 individuals at average risk for colorectal cancer who were screened with both Cologuard and colonoscopy. (Effie Roberts al, N Engl J Med 2014;370(14):6657-9650) The normal value (reference range) for this assay is negative. COLOGUARD RE-SCREENING RECOMMENDATION: Periodic colorectal cancer screening is an important part of preventive healthcare for asymptomatic individuals at average risk for colorectal cancer. Following a negative Cologuard result, the [place] [employer] Society and U.S. Multi-Society Task Force screening guidelines recommend a Cologuard re-screening interval of 3 years. References: [place] [employer] Guideline for Colorectal Cancer Screening: https://www.cancer.org/cancer/ruhuk-spjkgb-vwlldi/ydwfxgpam-ywsbhptzj-uknkoub/ac s-rec ommendations.html.; Venkat DK, Reyna CR, Matthew NyeK, Colorectal Cancer Screening: Recommendations for Physicians and Patients from the U.S. Multi-Society Task Force on Colorectal Cancer Screening , Am J Gastroenterology 2017; 112:6260-0208. TEST DESCRIPTION: Composite algorithmic analysis of stool DNA-biomarkers with hemoglobin immunoassay. Quantitative values of individual biomarkers are not reportable and are not associated with individual biomarker result reference ranges. Cologuard is intended for colorectal cancer screening of adults of either sex, 45 years or older, who are at average-risk for colorectal cancer (CRC). Cologuard has been approved for use by the U.S. FDA. The performance of Cologuard was established in a cross sectional study of average-risk adults aged 50-84. Cologuard performance in patients ages 45 to 49 years was estimated by sub-group analysis of near-age groups. Colonoscopies performed for a positive result may find as the most clinically significant lesion: colorectal cancer [4.0%], advanced adenoma (including sessile serrated polyps greater than or equal to 1cm diameter) [20%] or non- advanced adenoma [31%]; or no colorectal neoplasia [45%]. These estimates are derived from a prospective cross-sectional screening study of 10,000 individuals at average risk for colorectal cancer who were screened with both Cologuard and colonoscopy. (Effie Roberts al, N Engl J Med 2014;370(14):6934-0260.) Cologuard may produce a false negative or false positive result (no colorectal cancer or precancerous polyp present at colonoscopy follow up). A negative Cologuard test result does not guarantee the absence of CRC or advanced adenoma (pre-cancer). The current Cologuard screening interval is every 3 years. ([place] [employer] Society and U.S. Multi-Society Task Force). Cologuard performance data in a 10,000 patient pivotal study using colonoscopy as the reference method can be accessed at the following location: www.CrowdStar.Planet Expat/results. Additional description of the Cologuard test process, warnings and precautions can be found at www.cologuard.com. STOOL STOOL SPECIMEN / Unknown 02/10/2021 6:10 AM CASINO CASHIER 02/11/2021 1:39 PM CASINO CASHIER Chanelle Martinez INSTRUCTOR OF EDUCATION BODY FLUIDS AND STOOLS ORDERA BLES Final Result Performing Organization Address [facility] de Phone Number [facility] ([facility] [address] [facility]) [address] [place] [address], [facility] (CLIA #:[id number]) [address] [place] [address] * THINPREP IMAGING PAP REFLEX HPV MRNA E6/E7 (03/27/2012 9:15 AM CASINO CASHIER) REFLEX ADDED no [employer] P TO EPIC CONVERSION 03/27/2012 9:15 AM CASINO CASHIER 03/27/2012 9:15 AM CASINO CASHIER Narrative [facility] TO EPIC CONVERSION - 03/28/2012 1:29 PM CASINO CASHIER This lab was migrated from [facility] and may be missing annotations or result text, please check the Media tab for the most complete results. Chanelle ARELLANO PATHOLOGY/CYTOLOGY ORDERABLES Final Result Performing Organization Address [facility] Co de Phone Number [employer] TO EPIC CONVERSION from Last 3 Months or Most Recently Relevant to Health Maintenance Insurance [facility] Advance Directives * Full Code (Latest Code Status on File) Date Activated Date Inactivated Comments 03/25/2024 11:12 AM 03/27/2024 3:32 PM * Full Code Date Activated Date Inactivated Comments 03/19/2024 3:19 PM 03/20/2024 2:13 PM Care Teams Senior Client Advisor Relationship Specialty Start Date End Date Chanelle Martinez FNP [address] [place] [address] [place] [address] PCP - General Nurse Practitioner Family 01/10/18
[2024-09-08 19:53] VITALS: BP 153/87; PULSE 87; RESP 16; TEMP 36.6; O2SAT 96
[2024-09-08 20:13] LABS: BEDSIDEPREGUCG Negative (Negative)
[2024-09-08 20:16] VITALS: BP 141/73; PULSE 84; RESP 11; O2SAT 97
[2024-09-08 20:17] LABS: Hematocrit 38.9 % (37.0-47.0); Hemoglobin 12.5 g/dL (12.0-15.0); Immature Granulocyte Percent A 0.6 % (0-0.5); Lymphocytes Absolute Auto 1.32 K/mm3 (0.9-3.2); Mean Corpuscular HGB Conc 32.1 g/dl (32-36); Mean Corpuscular Hemoglobin 29.1 pg (26-34); Mean Corpuscular Volume 90.5 fl (80-100); Nucleated Red Blood Cells Absolute Auto 0.000 K/mm3 (0.0-0.012); Nucleated Red Blood Cells Perc 0.0 % (0.0-0.2); Platelet Count Result 549 k/mm3 (150-375); Red Blood Count 4.30 M/mm3 (4.2-5.4); White Blood Count 10.5 K/mm3 (4.5-10.0)
--- OUTSIDE RECORDS SUMMARY | 2024-09-08 20:21 | XMS_ITS | Encounter Summary ---
Author Organization [facility] Address [facility] [place] [address] Care Team Providers Care Cement Despatch Operator Name Role Phone Chanelle Martinez EILEEN Primary Care Provider [phone] Encounter Details Date Type Department Care Team ([facility] st Contact Info) Description 09/01/2024 Results Follow-Up [facility] [address] [place] [address] Lizzy Garcia, PET SITTING [address] [place] [address] VAGINITIS SCREEN (VDS) Social History Tobacco Use Types Packs/Day Years Used Date Smoking Tobacco: Former Cigarettes 1 32 Smokeless Tobacco: Never 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 Alcohol Use Standard Drinks/Week Comments No 0 (1 standard drink = 0.6 oz pur e alcohol) B1300 Health Literacy Answer Date Recor ded How often do you need to hav e someone help you when you read instructions, pamphlets, or other written material from your doctor or pharmacy? Never 03/19/2024 [facility] Utilities Answer Date Recorded In the past 12 months has e [employer], gas, oil, or water company threatened to [...] How often do you attend chur or temple services? Never 03/19/2024 Do you belong to any clubs o r organizations such as temple groups, unions, fraternal or athletic groups, or [...] Recorded Patient Health Questionnaire-2 Score 0 05/28/2024 [facility] [place] of Occupat ional Health - Occupational Stress [...] any time in the past 12 m [facility], were you homeless or living in a care home (including now)? No 03/19/2024 Comments No Sex and Gender Information Value Date Recorded Sex Assigned at Female 03/19/2024 11:21 AM TREATING AND PUMPING SUPERVISOR Legal Sex Female 8:23 PM CDT Gender [...] Assessment Author Status No 03/25/2024 11:00 AM TREATING AND PUMPING SUPERVISOR Yun Leiva R N Active * Because of a physical, mental, or emotional condition, do you have difficulty doing errands alone such as visiting a doctor's office or shopping? Answer Date of Assessment Author Status No 03/25/2024 11:00 AM TREATING AND PUMPING SUPERVISOR Yun Leiva R N Active documented as of this encounter Mental Status * Because of a physical, mental, or emotional condition, do you have serious difficulty concentrating, remembering, or making decisions? Answer Entry Date Author Status No 03/25/2024 11:00 AM TREATING AND PUMPING SUPERVISOR Yun Leiva R N Active documented in this encounter Progress Notes * Mila Stark MA - 09/01/2024 8:14 AM CDT Pt notified. Verbalized understanding. See message from provider, rx was sent. documented in this encounter Plan of Treatment Upcoming Encounters Date Type Department Care Team (Late st Contact Info) Description 10/07/2024 4:00 PM CDT Office Visit [facility] [address] [facility] [place] [address] Chanelle Martinez FNP [address] [place] [address] [place] [id number] documented as of this encounter Visit Diagnoses Diagnosis Bacterial vaginosis- Primary Vaginitis and vulvovaginitis, unspecified documented in this encounter Additional Health Concerns Assessment Noted Time PHQ-9 Depression Total Score: 1 02/04/20 21 9:50 AM TREATING AND PUMPING SUPERVISOR documented as of this encounter Care Teams Cement Despatch Operator Relationship Specialty Start Date End Date Chanelle Martinez FNP [address] [place] [address] [place] [id number] PCP - General Nurse Practitioner Family 01/10/18 documented as of this encounter
--- NOTE | 2024-09-08 20:22 | ED.ABDPAIN ---
HPI - Abdominal Pain General Chief Complaint: Abdominal Pain <Sarah Killian PA-C - Last Filed: 09/08/24 23:26> Stated Complaint: right kidney stone, N/V <Sarah Killian PA-C - Last Filed: 09/08/24 23:26> Time Seen by Provider: 09/08/24 20:02 <Sarah Killian PA-C - Last Filed: 09/08/24 23:26> History of Present Illness HPI narrative: 58-year-old female with history of hypertension, hyperlipidemia, COPD presents to the emergency department for right-sided abdominal pain and flank pain that started last night and has worsened throughout the day. Patient reports associated nausea and vomiting, subjective fever and chills, urinary frequency and urgency. Patient took a [place] this morning without improvement. Denies diarrhea, hematochezia, melena, dysuria. Last bowel movement was today and normal. Patient states she had a similar pain 2 weeks ago and went to [facility]. She was found to have a 6mm stone in her proximal ureter. Pt was give [place] and Fl[place] which she has been taking with improvement. She states she followed up with Dr. Mendenhall at the beginning of the month and had an outpatient CT scan performed which showed no change in her kidney stone. She was scheduled this upcoming for an outpatient stent placement, however canceled her procedure because she was unsure if she still had insurance given she recently changed jobs. Patient also notes that she finished a course of antibiotics today for urinary tract infection that was prescribed by her PCP. <Sarah Killian PA-C - Last Filed: 09/08/24 23:26> Related Data Home Medications: Home Medications ?Medication ?Instructions ?Recorded ?Confirmed ?Last Taken ?Type cimetidine 800 mg tablet 800 mg PO BID 02/28/21 09/04/24 Unknown History loratadine 10 mg tablet (Claritin) 10 mg PO DAILY 02/28/21 09/04/24 Unknown History atorvastatin 20 mg tablet (Lipitor) 20 mg PO HS 09/04/24 09/04/24 Unknown History furosemide 20 mg tablet (Lasix) 20 mg PO DAILY PRN edema 09/04/24 09/04/24 Unknown History lactobacillus combination no.4 3 3,000 mmu cells PO DAILY 09/04/24 09/04/24 Unknown History billion cell capsule (Probiotic) lisinopril 2.5 mg tablet 2.5 mg PO DAILY 09/04/24 09/04/24 Unknown History omeprazole 40 mg capsule,delayed 40 mg PO DAILY 09/04/24 09/04/24 Unknown History release <Sarah Killian PA-C - Last Filed: 09/08/24 23:26> Allergies/Adverse Reactions: Allergies Allergy/AdvReac Type Severity Reaction Status Date / Time Sulfa (Sulfonamide AdvReac Mild Nausea and Verified 09/08/24 19:42 Antibiotics) Vomiting <Sarah Killian PA-C - Last Filed: 09/08/24 23:26> Review of Systems Review of Systems: All systems reviewed & are unremarkable except as noted in HPI and below <Sarah Killian PA-C - Last Filed: 09/08/24 23:26> PENDING SALE TO [facility] Past Medical History Medical History: Medical History Asthma <Sarah Killian PA-C - Last Filed: 09/08/24 23:26> Surgical History Surgical History: Surgical History Trigger finger, right middle finger surgical release September 2010 History of rotator cuff surgery Right rotator cuff with DCE and October 2008 History of <Sarah Killian PA-C - Last Filed: 09/08/24 23:26> Family History Family History: Family History Father Asthma Heart disease Family history of thyroid disease Mother Hypertension Sibling Family history of thyroid disease Other Family history of cancer in father <Sarah Killian PA-C - Last Filed: 09/08/24 23:26> Social History Social History: Social History Smoking packs per day: 1 Smoking cigarettes per day: 20.0 Years smoked: 35 Smoking pack-years: 35.00 Smoking status: Former smoker Tobacco type: cigarettes Smoking end date: 09/04/21 Alcohol intake: never Substance use: never Living arrangements: with family Occupation/Education: occupation Additional occupation/education comments: [employer] Spiritual care concerns: No <Sarah Killian PA-C - Last Filed: 09/08/24 23:26> Exam Narrative: GENERAL: Patient appears uncomfortable HEAD: Normocephalic, atraumatic. EYES: EOMI. ENT: Nares clear, no rhinorrhea or epistaxis. Mucous membranes moist. NECK: Supple. CHEST: Clear to auscultation. No respiratory distress. HEART: Regular rate and rhythm. No murmur heard. Normal peripheral pulses. ABDOMEN: Normoactive bowel sounds. Abdomen soft with tenderness to the right lower quadrant and right upper quadrant on palpation. Mild right CVA tenderness. EXTREMITIES: Normal range of motion. No edema. SKIN: Warm, dry, no rash. NEURO: No focal deficits. Alert and oriented x3 <Sarah Killian PA-C - Last Filed: 09/08/24 23:26> Course COMPTOMETRIST/PA Physician Supervision This visit was performed by both a physician and an APC. I performed all aspects of the MDM as documented. Patient has a reassuring physical examination, obstructing kidney stones found on CT with urinary infection evidence requiring IV antibiotics and urology consultation. Patient admitted to the hospitalist service and Urology made aware of patient's care with recommendations for NPO at midnight for possible interventions tomorrow morning. Patient remains hemodynamically stable and pain improved on re-evaluation. <Jamaal Braswell MD - Last Filed: 09/08/24 21:30> Vital Signs Vital signs: Vital Signs Temperature 97.8 F 09/08/24 19:53 Pulse Rate 87 09/08/24 19:53 Respiratory Rate 16 09/08/24 19:53 Blood Pressure 153/87 H 09/08/24 19:53 Pulse Oximetry 96 09/08/24 19:53 Oxygen Delivery Room Air 09/08/24 19:53 Temperature 97.8 F 09/08/24 19:53 Pulse Rate 90 09/08/24 21:15 Respiratory Rate 0 L 09/08/24 21:46 Blood Pressure 130/61 09/08/24 21:46 Pulse Oximetry 97 09/08/24 21:46 Oxygen Delivery Room Air 09/08/24 19:53 <Sarah Killian PA-C - Last Filed: 09/08/24 23:26> Vital Signs Temperature 97.8 F 09/08/24 19:53 Pulse Rate 87 09/08/24 19:53 Respiratory Rate 16 09/08/24 19:53 Blood Pressure 153/87 H 09/08/24 19:53 Pulse Oximetry 96 09/08/24 19:53 Oxygen Delivery Room Air 09/08/24 19:53 Temperature 97.8 F 09/08/24 19:53 Pulse Rate 90 09/08/24 21:15 Respiratory Rate 0 L 09/08/24 21:46 Blood Pressure 130/61 09/08/24 21:46 Pulse Oximetry 97 09/08/24 21:46 Oxygen Delivery Room Air 09/08/24 19:53 <Jamaal Braswell MD - Last Filed: 09/08/24 21:30> MDM - Abdominal Pain MDM Narrative Medical decision making narrative: 58-year-old female with history of COPD, hypertension, hyperlipidemia presents to the emergency department for right-sided abdominal and flank pain since yesterday. Patient diagnosed with a 6 mm proximal right ureteral stone 2 weeks ago. She was scheduled to have a stent placed this , however canceled her appointment because she was uncertain if she still had insurance given her recent job change. Symptoms returned last night. Vitals with elevated blood pressure 153/87, otherwise unremarkable. Exam is notable for the above. CBC with mild leukocytosis of 10.5. Chemistries with a creatinine of 1.13, no prior for comparison. Urinalysis indicative of UTI with greater than 100 white blood cells, 3+ leuk esterase, 1+ bacteria and trace ketones. CT abdomen pelvis shows obstructing 4 mm and 3 mm stone in the proximal right ureter with mild right hydroureteronephrosis and perinephric stranding. Patient was updated on results. She was given IV fluids, Zofran, morphine with improvement. She was started on Rocephin in the ED. discussed case with urologist, Dr. Yi, who agrees to consult on admission. Advises NPO at midnight. Discussed with hospitalist, Dr. Santiago, who agrees to admission. <Sarah Killian PA-C - Last Filed: 09/08/24 23:26> Lab Data Result diagrams: 09/08/24 20:09 09/08/24 20:09 <Sarah Killian PA-C - Last Filed: 09/08/24 23:26> Labs: Lab Results 09/08/24 09/08/24 Range/Units 20:07 20:09 WBC 10.5 H (4.5-10.0) K/mm3 RBC 4.30 (4.2-5.4) M/mm3 Hgb 12.5 (12.0-15.0) g/dL Hct 38.9 (37.0-47.0) % MCV 90.5 (80-100) fl MCH 29.1 (26-34) pg MCHC 32.1 (32-36) g/dl RDW 12.9 (11.5-14.5) % Plt Count 549 H (150-375) k/mm3 MPV 9.6 (7.4-10.4) fl Immature Gran % (Auto) 0.6 H (0-0.5) % Neut % (Auto) 75.1 H (45.5-73.1) % Lymph % (Auto) 12.5 L (18.3-44.2) % [place] % (Auto) 10.4 H (2.6-8.5) % Eos % (Auto) 0.6 (0-4.4) % Baso % (Auto) 0.8 (0.2-1.2) % Lymph # (Auto) 1.32 (0.9-3.2) K/mm3 [place] # (Auto) 1.1 H (0.1-0.6) K/mm3 Eos # (Auto) 0.1 (0-0.3) K/mm3 Baso # (Auto) 0.1 (0.0-0.1) K/mm3 Abs Immat Gran (auto) 0.06 H (0.00-0.031) K/mm3 Absolute Neuts (auto) 7.9 H (1.3-6.7) K/mm3 Absolute Nucleated RBC 0.000 (0.0-0.012) K/mm3 Nucleated RBC % 0.0 (0.0-0.2) % Sodium 139 (137-145) mmol/L Potassium 4.3 (3.4-5.0) mmol/L Chloride 102 (98-107) mmol/L Carbon Dioxide 28 (22-30) mmol/L Anion Gap 9 (4-12) mmol/L BUN 11 (7-17) mg/dL Creatinine 1.13 H (0.7-1.0) mg/dL Estim Creat Clear Calc 58 ml/min Estimated GFR 49 L (59 - ) Glucose 114 H (65-110) mg/dL Calcium 9.5 (8.4-10.2) mg/dL Total Bilirubin 0.6 (0.2-1.3) mg/dL AST 59 H (14-36) U/L ALT 48 H (6-35) U/L Alkaline Phosphatase 66 (38-126) U/L Total Protein 7.1 (6.3-8.2) g/dL Albumin 4.4 (3.5-5.1) g/dL Urine Color Yellow (Yellow) Urine Appearance Clear (Clear) Urine pH 6.5 (5.0-9.0) Ur Specific [place] 1.019 (1.001-1.035) Urine Protein Trace (Negative) mg/dL Urine Glucose (UA) Negative (Negative) mg/dL Urine Ketones Trace H (Negative) mg/dL Ur Blood (Man) Negative (Negative) Urine Nitrate Negative (Negative) Urine Bilirubin Negative (Negative) Urine Urobilinogen 1.0 (<2.0) mg/dL Leukocyte Esterase Rfl 3+ H (Negative) MARINO/UL Urine RBC 0-2 (0-2) /hpf Urine WBC >100 H (0-3) /hpf Ur Squamous Epith Cells Occasional (Few) /hpf Urine Bacteria 1+ H /hpf Urine Casts 0-2 POC Urine HCG, Qual Negative (Negative) <Sarah Killian PA-C - Last Filed: 09/08/24 23:26> Lab Results 09/08/24 09/08/24 Range/Units 20:07 20:09 WBC 10.5 H (4.5-10.0) K/mm3 RBC 4.30 (4.2-5.4) M/mm3 Hgb 12.5 (12.0-15.0) g/dL Hct 38.9 (37.0-47.0) % MCV 90.5 (80-100) fl MCH 29.1 (26-34) pg MCHC 32.1 (32-36) g/dl RDW 12.9 (11.5-14.5) % Plt Count 549 H (150-375) k/mm3 MPV 9.6 (7.4-10.4) fl Immature Gran % (Auto) 0.6 H (0-0.5) % Neut % (Auto) 75.1 H (45.5-73.1) % Lymph % (Auto) 12.5 L (18.3-44.2) % [place] % (Auto) 10.4 H (2.6-8.5) % Eos % (Auto) 0.6 (0-4.4) % Baso % (Auto) 0.8 (0.2-1.2) % Lymph # (Auto) 1.32 (0.9-3.2) K/mm3 [place] # (Auto) 1.1 H (0.1-0.6) K/mm3 Eos # (Auto) 0.1 (0-0.3) K/mm3 Baso # (Auto) 0.1 (0.0-0.1) K/mm3 Abs Immat Gran (auto) 0.06 H (0.00-0.031) K/mm3 Absolute Neuts (auto) 7.9 H (1.3-6.7) K/mm3 Absolute Nucleated RBC 0.000 (0.0-0.012) K/mm3 Nucleated RBC % 0.0 (0.0-0.2) % Sodium 139 (137-145) mmol/L Potassium 4.3 (3.4-5.0) mmol/L Chloride 102 (98-107) mmol/L Carbon Dioxide 28 (22-30) mmol/L Anion Gap 9 (4-12) mmol/L BUN 11 (7-17) mg/dL Creatinine 1.13 H (0.7-1.0) mg/dL Estim Creat Clear Calc 58 ml/min Estimated GFR 49 L (59 - ) Glucose 114 H (65-110) mg/dL Calcium 9.5 (8.4-10.2) mg/dL Total Bilirubin 0.6 (0.2-1.3) mg/dL AST 59 H (14-36) U/L ALT 48 H (6-35) U/L Alkaline Phosphatase 66 (38-126) U/L Total Protein 7.1 (6.3-8.2) g/dL Albumin 4.4 (3.5-5.1) g/dL Urine Color Yellow (Yellow) Urine Appearance Clear (Clear) Urine pH 6.5 (5.0-9.0) Ur Specific [place] 1.019 (1.001-1.035) Urine Protein Trace (Negative) mg/dL Urine Glucose (UA) Negative (Negative) mg/dL Urine Ketones Trace H (Negative) mg/dL Ur Blood (Man) Negative (Negative) Urine Nitrate Negative (Negative) Urine Bilirubin Negative (Negative) Urine Urobilinogen 1.0 (<2.0) mg/dL Leukocyte Esterase Rfl 3+ H (Negative) MARINO/UL Urine RBC 0-2 (0-2) /hpf Urine WBC >100 H (0-3) /hpf Ur Squamous Epith Cells Occasional (Few) /hpf Urine Bacteria 1+ H /hpf Urine Casts 0-2 POC Urine HCG, Qual Negative (Negative) <Jamaal Braswell MD - Last Filed: 09/08/24 21:30> Imaging Data Radiologist's impression: ITS Impressions Abdomen/Pelvis CT 09/08/24 20:42 IMPRESSION: 1. Obstructing 4 mm and 3 mm stones in the proximal right ureter with mild and right hydroureteronephrosis. Correlate with urinalysis to exclude associated ascending urinary tract infection. <Sarah Killian PA-C - Last Filed: 09/08/24 23:26> ITS Impressions Abdomen/Pelvis CT 09/08/24 20:42 IMPRESSION: 1. Obstructing 4 mm and 3 mm stones in the proximal right ureter with mild and right hydroureteronephrosis. Correlate with urinalysis to exclude associated ascending urinary tract infection. <Jamaal Braswell MD - Last Filed: 09/08/24 21:30> Discharge Plan Discharge Clinical Impression: [place], ureteral UTI (urinary tract infection) Qualifiers: Urinary tract infection type: acute cystitis Hematuria presence: without hematuria Qualified Code(s): N30.00 - Acute cystitis without hematuria <Sarah Killian PA-C - Last Filed: 09/08/24 23:26> Patient Disposition: Still a Patient <Sarah Killian PA-C - Last Filed: 09/08/24 23:26> Condition: Stable <Sarah Killian PA-C - Last Filed: 09/08/24 23:26>
--- OUTSIDE RECORDS SUMMARY | 2024-09-08 20:22 | XMS_ITS | Clinical Summary ---
Author Organization [facility] Address [facility] [place] [address] Care Team Providers Care Supervisor Assembling Name Role Phone Chanelle Martinez SUPERVISOR CONTINUOUS WELD PIPE MILL Primary Care Provider [phone] Allergies Active Allergy Reactions Criticality Noted Date Comments Sulfa Antibiotics Unknown 07/06/2011 Medications loratadine 10 MG tablet Take 1 tablet (10 mg total) by mouth daily. 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) 2020 Urticaria, chronic 04/11/2018 Asthma ([facility]) 04/11/2018 Hot flashes due to menopause 04/11/2018 Class 2 obesity due to exces s calories with body mass index (BMI) of 36.0 to 36.9 in adult 07/06/2011 COPD (chronic obstructive pu lmonary disease) with emphysema ([facility]) Resolved Problems Problem Noted Date Diagnosed Date Resolved Date Tobacco abuse 11/07/2012 10/27/2021 Overview (04/11/2018): Date Onset: 11/07/2012 Hypothyroidism 07/06/2011 03/09/2020 Encounters Date Type Department Care Team Description 09/01/2024 6:39 AM CDT - 09/01/2024 11:59 PM CDT Hospital Encounter [facility] [address] [place] [address] Elise Diallo MD Discharge Disposition: Home or Self Care (Routine Discharge) 09/01/2024 Results Follow-Up [facility] [address] [place] [address] Lizzy Garcia APRN VAGINITIS SCREEN (VDS) 08/31/2024 10:28 AM CDT - 08/31/2024 11:59 PM CDT Hospital Encounter [facility] [address] [place] [address] Lizzy Garcia APRN Discharge Disposition: Home or Self Care (Routine Discharge) 08/31/2024 8:40 AM CDT Office Visit [facility] [address] [place] [address] Lizzy Garcia APRN Vaginal Problem (Hope is here today for possible yeast infection. She has been on antibiotics recently for kidney stones. She states this always happens when she takes antibiotics. Symptoms began Saturday. She has vaginal itching and some burning. There is a little discharge as well./-nkw) 08/31/2024 Orders Only [facility] [address] [place] [address] Lizzy Garcia APRN 08/31/2024 Travel 08/25/2024 Telephone [facility] [address] [place] [address] Chanelle Martinez FNP Follow Up Call 08/21/2024 3:37 PM CDT - 08/21/2024 7:30 PM CDT Emergency [facility] [address] [place] [address] Brice Pittman MD Abdominal Pain Discharge Disposition: Home or Self Care (Routine Discharge) 08/21/2024 Travel 07/14/2024 Telephone [facility] [address] [place] [address] Chanelle Martinez FNP Hair/Scalp Problem 07/07/2024 3:40 PM CDT Office Visit [facility] [address] [facility] [place] [address] Chanelle Martinez FNP Follow Up (3 week follow up/Would also like to discuss issues when she consumes milk and eggs) 07/07/2024 Travel 06/29/2024 Results Follow-Up [facility] [address] [place] [address] Chanelle Martinez FNP CBC W/DIFF AUTOMATED, COMPREHENSIVE METABOLIC PANEL, LIPID PANEL, Additional followed-up results: 2 06/27/2024 7:22 AM CDT - 06/27/2024 11:59 PM CDT Hospital Encounter [facility] [address] [place] [address] Chanelle Martinez FNP Discharge Disposition: Home or Self Care (Routine Discharge) 06/27/2024 Travel 06/16/2024 2:20 PM CDT Office Visit [facility] [address] [place] [address] Chanelle Martinez FNP Follow Up (2w on [...] Never Tobacco Cessation:Counseling Given: No Comments:Provider to dianetic counselor. Ready to quit at the end [...] In the past 12 months has e [employer], hiogi, oil, or water [employer] threatened to shut off services in your [...] any clubs o r organizations such as mandaen groups, unions, fraternal or athletic groups, or [...] Recorded Patient Health Questionnaire-2 Score 0 05/28/2024 [facility] - Occupational Stress Questionnaire Answer Date Recorded [...] any time in the past [address] [facility], were you homeless or living in a nursing home (including now)? No 03/19/2024 Comments No Sex and Gender Information Value Date Recorded Sex Assigned at Female 03/19/2024 11:21 AM COMMERCIAL ART INSTRUCTOR Legal Sex Female 8:23 PM CDT Gender [...] Description 10/07/2024 4:00 PM CDT Office Visit [facility] [address] [place] [address] Chanelle Martinez, [facility] [address] [place] [id number] Health Maintenance Due Date Last Done Comments [...] 02/10/2021 Mammogram Screening 12/14/2024 12/14/2022 PHQ-2 (Physician [place]) Completed 05/28/2024 Meningococcal B Vaccine Aged Out [...] COLOGUARD (EXACT SCIENCE) Routine 02/10/2021 6:10 AM COMMERCIAL ART INSTRUCTOR Colon cancer screening THINPREP IMAGING PAP REFLEX HPV MRNA E6/E7 Routine 03/27/2012 9:15 AM COMMERCIAL ART INSTRUCTOR from Last 3 Months or Most Recently [...] 6:51 AM Narrative 09/01/2024 6:55 AM CDT [address] [place] [address] EXAMINATION: CT ABDOMEN/PELVIS WITHOUT CONTRAST INDICATION: Right [...] Procedure Note Benjamin Freed MD - 09/01/[address] [place] [address] EXAMINATION: CT ABDOMEN/PELVIS WITHOUT CONTRAST INDICATION: Right [...] SOURCE VAGINAL SPECIMEN 08/31/2024 7:13 PM CDT [facility] TRICHOMONAS NEGATIVE 08/31/2024 7:13 PM CDT [facility] Comment:NOT DETECTED BY DNA PROBE GARDNERELLA VAGINALIS POSITIVE 08/31/2024 7:13 PM CDT [facility] Comment:DETECTED BY DNA PROB E FREDI SPECIES NEGATIVE 7:13 PM CDT [facility] Comment:NOT DETECTED BY DNA PROBE VAGINAL STRUCTURE / Unknown 08/31/2024 9:09 AM CDT Lizzy Garcia APRN MICROBIOLOGY - GENERAL OR DERABLES Final Result [facility] [address] [place] [address], [id number] * (ABNORMAL) CULTURE URINE (08/21/2024 6:35 PM CDT) SPEC DESCRIPTION URINE CLEAN CATCH 08/21/2024 7:05 PM CDT [facility] SPECIAL REQUESTS NO SPECIAL REQUEST 08/21/2024 7:05 PM CDT [facility] CULTURE RESULT 50,000-100, 000 COL/ML ESCHERICHIA COLI (A) 08/24/2024 8:39 AM CDT [facility] URINE SPECIMEN OBTAINED BY CLEAN CATCH PROCEDURE / Unknown 08/21/2024 6:35 PM CDT 08/21/2024 7:11 PM CDT Narrative Organism Antibiotic Method Susceptibility Escherichia coli AMPICILLIN DENIS (VITEK) 4: Sensitive Escherichia coli AMPICILLIN/SULBACTAM DENIS (VITEK) <=2: Sensitive Escherichia coli CEFTRIAXONE DENIS (VITEK) <=1: Sensitive Escherichia coli CEFTAZIDIME DENIS (VITEK) <=1: Sensitive Escherichia coli CEFAZOLIN DENIS (VITEK) <=4: Sensitive Escherichia coli ESBL DENIS (VITEK) NEG: Sensitive Escherichia coli NITROFURANTOIN DENIS (VITEK) <=16: Sensitive Escherichia coli GENTAMICIN DENIS (VITEK) <=1: Sensitive Escherichia coli LEVOFLOXACIN DENIS (VITEK) <=0.12: Sensitive Escherichia coli PIPRACIL/TAZO DENIS (VITEK) <=4: Sensitive Escherichia coli TRIMETH-SULFAMETH. DENIS (VITEK) <=20: Sensitive Brice Pittman MD MICROBIOLOGY - GENERAL [facility] Final Result [facility] [address] [place] [address], [facility] [address] [place] [address] [place] [address], [place] * (ABNORMAL) URINALYSIS AUTO DIP (08/21/2024 6:35 PM CDT) COLOR (U) YELLOW YELLOW 08/21/2024 6:47 PM CDT [facility] TRANSPARENCY HAZY(A) CLEAR 08/21/2024 6:47 PM CDT [facility] SPECIFIC GRAVITY (U) 1.023 1.001 - 1.030 08/21/2024 6:47 PM CDT [facility] U PH 5.5 5.0 - 9.0 08/21/2024 6:47 PM CDT [facility] LEUKOCYTES (U) 4+(A) NEGATIVE 08/21/2024 6:47 PM CDT [facility] NITRITES NEGATIVE NEGATIVE 08/21/2024 6:47 PM CDT [facility] PROTEIN RANDOM (U) 1+(A) NEGATIVE 08/21/2024 6:47 PM CDT [facility] GLUCOSE (U) NORMAL NORMAL 08/21/2024 6:47 PM CDT [facility] KETONES MG/DL (U) NEGATIVE NEGATIVE 08/21/2024 6:47 PM CDT [facility] UROBILINOGEN NORMAL NORMAL EU/DL 08/21/2024 6:47 PM CDT [facility] BILIRUBIN (U) NEGATIVE NEGATIVE 08/21/2024 6:47 PM CDT [facility] BLOOD (U) NEGATIVE NEGATIVE 08/21/2024 6:47 PM CDT [facility] URINE MICROSCOPIC URINE MICROSCOPIC TO FOLLOW. 08/21/2024 6:47 PM CDT [facility] URINE SPECIMEN OBTAINED BY CLEAN CATCH PROCEDURE / Unknown 08/21/2024 6:35 PM CDT Brice Pittman MD URINE ORDERABLES Final Resu lt Performing Organization Address City/[facility]/ZIP Co de Phone Number [facility] [address] [facility] [place] [address], [place] * (ABNORMAL) URINALYSIS MICRO ONLY (08/21/2024 6:35 PM CDT) WBC/HPF >100(H) <6 /HPF 08/22/2024 12:02 PM CDT [facility] RBC/HPF 8(H) <6 /HPF 08/22/2024 12:02 PM CDT [facility] MUCUS MODERATE /LPF 08/22/2024 12:02 PM CDT [facility] CA OXALATE CRYSTALS RARE /HPF 08/22/2024 12:02 PM CDT [facility] SQUAMOUS EPITHELIALS RARE /HPF 08/22/2024 12:02 PM CDT [facility] 08/21/2024 6:35 PM CDT Brice Pittman MD URINE ORDERABLES Final Resu lt [facility] [address] [place] [address], [place] [phone] * XR CHEST PORTABLE (08/21/2024 4:33 PM CDT) Anatomical Region Laterality Modality Chest Computed Tomogra phy 08/21/2024 5:13 PM CDT Impressions 08/21/2024 5:14 PM CDT Impression: No acute findings. Referred By: Interpreted By: Mehul Lerner MD, 08/21/2024 5:13 PM Narrative 08/21/2024 5:14 PM CDT [address] [place] [address] Examination: Chest 1 view portable History: Right upper quadrant pain DATE/TIME: 08/21/2024 4:19 PM Comparison: 03/25/2024 Technique: AP portable view of the chest was obtained. Findings: Heart size, mediastinal contours and pulmonary vasculature are within normal limits. No pulmonary consolidation, pleural effusion or pneumothorax. No acute osseous abnormality. Thoracic spondylosis. Procedure Note Mehul Lerner MD - 08/21/[address] [place] [address] Examination: Chest 1 view portable History: Right [...] - 99 MG/DL 08/21/2024 4:53 PM CDT [facility] BUN 9 7 - 18 MG/DL 08/21/2024 4:53 PM CDT [facility] CREATININE S/P/B 1.00 0.50 - 1.20 MG/DL 08/21/2024 4:53 PM CDT [facility] SODIUM S/P/B 140 136 - 145 MMOL/L 08/21/2024 4:53 PM CDT [facility] POTASSIUM S/P/B 4.0 3.5 - 5.1 MMOL/L 08/21/2024 4:53 PM CDT [facility] CHLORIDE S/P/B 104 100 - 108 MMOL/L 08/21/2024 4:53 PM CDT [facility] CO2 31.0 21.0 - 32.0 MMOL/L 08/21/2024 4:53 PM CDT [facility] CALCIUM S/P/B 8.7 8.5 - 10.1 MG/DL 08/21/2024 4:53 PM CDT [facility] BILIRUBIN TOTAL S/P/B 0.3 0.2 - 1.2 MG/DL 08/21/2024 4:53 PM CDT [facility] Comment: THIS ASSAY IS NOT RECOMMENDED FOR PATIENTS UNDERGOING TREATMENT WITH ELTROMBOPAG DUE TO THE POTENTIAL FOR FALSELY ELEVATED RESULTS. TOTAL PROTEIN S/P/B 6.9 6.4 - 8.2 G/DL 08/21/2024 4:53 PM CDT [facility] ALBUMIN S/P/B 4.1 3.4 - 5.0 G/DL 08/21/2024 4:53 PM CDT [facility] AST 21 15 - 37 U/L 08/21/2024 4:53 PM CDT [facility] ALT 31 14 - 55 U/L 08/21/2024 4:53 PM CDT [facility] ALKALINE PHOSPHATASE S/P/B 104 50 - 136 U/L 08/21/2024 4:53 PM CDT [facility] ANION GAP 5.0 5.0 - 15.0 MMOL/L 08/21/2024 4:53 PM CDT [facility] BUN CREATININE RATIO 9.0 6 - 26 08/21/2024 4:53 PM CDT [facility] A/G RATIO 1.5 1.0 - 2.5 RATIO 08/21/2024 4:53 PM CDT [facility] GFR ESTIMATE 65(L) >90 ML/MIN/1.7 3 M2 08/21/2024 4:53 PM CDT [facility] Comment: NOTE: eGFR is not calculated for patients <18 years of age. This is an estimated GFR calculation using the new CKD EPI creatinine equation without race and so does not require a correction factor for race. This estimated GFR should not be used for calculating drug doses. 08/21/2024 3:43 PM CDT us Brice Pittman MD LABORATORY Final Resul t [address] [place] [address], * (ABNORMAL) CBC W/DIFF AUTOMATED (08/21/2024 3:43 PM CDT) Only the most recent of2 resultswithin the time period is included. WBC 8.85 4.50 - 11.00 x10'3/uL 08/21/2024 4:35 PM CDT [facility] RBC 4.41 4.00 - 5.20 x10'6/uL 08/21/2024 4:35 PM CDT [facility] HGB 13.1 12.0 - 16.0 G/DL 08/21/2024 4:35 PM CDT [facility] HCT 41.0 38.0 - 48.0 % 08/21/2024 4:35 PM CDT [facility] MCV 93.0 80.0 - 100.0 FL 08/21/2024 4:35 PM CDT [facility] MCH 29.7 26.0 - 34.0 PG 08/21/2024 4:35 PM CDT [facility] MCHC 32.0 31.0 - 37.0 G/DL 08/21/2024 4:35 PM CDT [facility] RDW 12.9 11.6 - 14.8 % 08/21/2024 4:35 PM CDT [facility] PLT 465(H) 130 - 400 x10'3/uL 08/21/2024 4:35 PM CDT [facility] MPV 10.0 7.0 - 12.0 FL 08/21/2024 4:35 PM CDT [facility] CBC COMMENT AUTOMATED RBC MORPHOLOGY AND PLATELET EVALUATION NORMAL 08/21/2024 4:35 PM CDT [facility] NEUTROPHILS % 54.6 40.0 - 74.0 % 08/21/2024 4:35 PM CDT [facility] LYMPHOCYTES % 27.5 14.0 - 46.0 % 08/21/2024 4:35 PM CDT [facility] MONOCYTES % 12.1 4.0 - 13.0 % 08/21/2024 4:35 PM CDT [facility] EOSINOPHILS 4.5 0.0 - 7.0 % 08/21/2024 4:35 PM CDT [facility] BASOPHILS 0.8 0.0 - 3.0 % 08/21/2024 4:35 PM CDT [facility] IMMATURE GRANS % 0.5(H) 0.0 - 0.43 % 08/21/2024 4:35 PM CDT [facility] NRBC % 0.0 % 08/21/2024 4:35 PM CDT [facility] ABS. NEUTROPHILS TOTAL 4.84 1.69 - 7.81 x10'3/uL 08/21/2024 4:35 PM CDT [facility] ABS. LYMPHOCYTES 2.43 0.21 - 5.42 x10'3/uL 08/21/2024 4:35 PM CDT [facility] ABS. MONOCYTES 1.07 0.04 - 1.37 x10'3/uL 08/21/2024 4:35 PM CDT [facility] ABS. EOSINOPHILS 0.40 0.00 - 0.68 x10'3/uL 08/21/2024 4:35 PM CDT [facility] ABS. BASOPHILS 0.07 0.00 - 0.08 x10'3/uL 08/21/2024 4:35 PM CDT [facility] ABS. IMMATURE GRANULOCYTES 0.04 0.00 - 0.06 x10'3/uL 08/21/2024 4:35 PM CDT [facility] ABS. NUCLEATED RBC'S 0.00 0.00 - 0.01 x10'3/uL 08/21/2024 4:35 PM CDT [facility] 08/21/2024 3:43 PM CDT Brice Pittman MD LABORATORY Final Resul t Performing Organization Address [facility] Co de Phone Number [facility] [address] [facility] [place] [address], [place] * LIPASE (08/21/2024 3:43 PM CDT) Pathologist [facility] LIPASE 24 16 - 77 UNITS/L 08/21/2024 4:53 PM CDT [facility] 08/21/2024 3:43 PM CDT us Brice Pittman MD LABORATORY Final Resul t Performing Organization Address [facility] Co de Phone Number [facility] [address] [facility] [place] [address], [place] * (ABNORMAL) LIPID PANEL (06/27/2024 7:30 AM CDT) CHOLESTEROL 211(H) <200 MG/DL 06/28/2024 12:40 PM CDT [facility] TRIGLYCERIDES 105 <150 MG/DL 06/28/2024 12:40 PM CDT [facility] HDL 59 >40.0 MG/DL 06/28/2024 12:40 PM CDT [facility] LDL (CALCULATED) 131(H) <100 MG/DL 06/28/2024 12:40 PM CDT [facility] NON HDL CHOLESTEROL 152(H) <130 MG/DL 06/28/2024 12:40 PM CDT [facility] CHOL/HDL RATIO 3.6 0.0 - 4.5 06/28/2024 12:40 PM CDT [facility] VLDL CALCULATION 21 5 - 55 MG/DL 06/28/2024 12:40 PM CDT [facility] LIPID INTERPRETATION 06/28/2024 12:40 PM CDT [facility] Comment: [facility] CONCENSUS REPORT RECOMMENDATIONS: ADULT CHILD LOW RISK: CHOLESTEROL <200 <170 TRIGLYCERIDE <150 --- HDL >=60 --- LDL <100 <110 BORDERLINE: CHOLESTEROL 200-239 170-199 TRIGLYCERIDE 150-199 --- HDL 40-59 --- LDL 100-159 110-129 HIGH RISK: CHOLESTEROL >=240 >=200 TRIGLYCERIDE >=200 --- HDL <40 --- LDL >=160 >=130 06/27/2024 7:30 AM CDT Chanelle Martinez SUPERVISOR CONTINUOUS WELD P[employer] MILL LABORATORY Final Result [facility] [address] [place] [address], [place] [phone] * THYROID STIM HORMONE TSH (06/27/2024 7:30 AM CDT) Pathologist [facility] TSH 3.340 0.358 - 3.74 uIU/ML 06/28/2024 12:40 PM CDT [facility] Comment: HIGH DOSES OF BIOTIN MAY INTERFERE WITH THIS TEST RESULT. CORRELATION TO CLINICAL HISTORY AND PRESENTATION RECOMMENDED. 06/27/2024 7:30 AM CDT Chanelle Martinez SUPERVISOR CONTINUOUS WELD P[employer] MILL LABORATORY Final Result Performing Organization Address City/[facility] Co de Phone Number [facility] [address] [place] [address], [place] [phone] * VITAMIN D, 25 OH (06/27/2024 7:30 AM CDT) VITAMIN D 25 HYDROXY S/P/B 38 30 - 100 NG/ML 06/28/2024 12:54 PM CDT [facility] Comment: INTERPRETATION DEFICIENT <20 INSUFFICIENT 20-29 SUFFICIENT 30-100 06/27/2024 7:30 AM CDT Chanelle Martinez SUPERVISOR CONTINUOUS [employer] LABORATORY Final Result Performing Organization Address [facility] de Phone Number [facility] [address] [place] [address], [place] [phone] * MG SCREENING W ARIADNA GAIL DIGI [...] Hoang, 12/14/2022 5:03 PM us Chanelle Martinez SUPERVISOR CONTINUOUS [employer] MAMMO Final Result * COLOGUARD (unamia SCIENCE) (02/10/2021 6:10 AM COMMERCIAL ART INSTRUCTOR) COLOGUARD RESULT Negative Negative [employer] (CLIA #:[id number]) Comment: NEGATIVE TEST RESULT. A negative Cologuard [...] (Effie Roberts al, N Engl J Med 2014;370(14):2662-4141) The normal value (reference range) for this assay is negative. COLOGUARD RE-SCREENING RECOMMENDATION: Periodic colorectal cancer screening is an important part of preventive healthcare for asymptomatic individuals at average risk for colorectal cancer. Following a negative Cologuard result, the [place] [employer] and U.S. Multi-Society Task Force screening guidelines recommend a Cologuard re-screening interval of 3 years. References: [place] [employer] Guideline for Colorectal Cancer Screening: https://www.cancer.org/cancer/gixxx-nhwatf-lkzuzt/yvgdfokuv-kaaypsvju-uebqlxu/ac s-rec ommendations.html.; Venkat DK, Reyna CR, Matthew NyeK, Colorectal Cancer Screening: Recommendations for Physicians and Patients from the U.S. Multi-Society Task Force on Colorectal Cancer Screening , Am J Gastroenterology 2017; 112:2661-5492. TEST DESCRIPTION: Composite algorithmic analysis of stool [...] (Effie Roberts al, N Engl J Med 2014;370(14):9745-5203.) Cologuard may produce a false negative or false positive result (no colorectal cancer or precancerous polyp present at colonoscopy follow up). A negative Cologuard test result does not guarantee the absence of CRC or advanced adenoma (pre-cancer). The current Cologuard screening interval is every 3 years. ([place] [employer] and U.S. Multi-Society Task Force). Cologuard performance data in a 10,000 patient pivotal study using colonoscopy as the reference method can be accessed at the following location: www.Reaction.SHERPA assistant/results. Additional description of the Cologuard test process, warnings and precautions can be found at www.cologuard.com. STOOL STOOL SPECIMEN / Unknown 02/10/2021 6:10 AM COMMERCIAL ART INSTRUCTOR 02/11/2021 1:39 PM COMMERCIAL ART INSTRUCTOR Chanelle Martinez SUPERVISOR CONTINUOUS WELD PIPE MILL BODY FLUIDS AND STOOLS ORDERA BLES Final Result Performing Organization Address [facility] de Phone Number Info ([address] [facility]) [address] [place] [address], [employer] (CLIA #:[id number]) [address] [place] [address] * THINPREP IMAGING PAP REFLEX HPV MRNA E6/E7 (03/27/2012 9:15 AM COMMERCIAL ART INSTRUCTOR) REFLEX ADDED no [employer] P TO EPIC CONVERSION 03/27/2012 9:15 AM COMMERCIAL ART INSTRUCTOR 03/27/2012 9:15 AM COMMERCIAL ART INSTRUCTOR Narrative [employer] TO EPIC CONVERSION - 03/28/2012 1:29 PM COMMERCIAL ART INSTRUCTOR This lab was migrated from [facility] and may be missing annotations or result text, please check the Media tab for the most complete results. Chanelle ARELLANO PATHOLOGY/CYTOLOGY ORDERABLES Final Result Performing Organization Address City/[facility] Co de Phone Number [employer] TO EPIC CONVERSION from Last 3 Months or Most Recently Relevant to Health Maintenance Insurance [facility] Advance Directives * Full Code (Latest Code Status on File) Date Activated Date Inactivated Comments 03/25/2024 11:12 AM 03/27/2024 3:32 PM * Full Code Date Activated Date Inactivated Comments 03/19/2024 3:19 PM 03/20/2024 2:13 PM Care Teams Supervisor Assembling Relationship Specialty Start Date End Date Chanelle Martinez FNP [address] [place] [address] [place] [address] PCP - General Nurse Practitioner Family 01/10/18
[2024-09-08 20:24] LABS: Add Urine Microscopic? YES; Appearance Urine Clear (Clear); Glucose Urine UA Negative (Negative); Leukocyte Esterase Ur 3+ LEU/UL (Negative); Nitrate Urine Negative (Negative); Non Pathogenic Casts 0-2; Specific Grav Ur 1.019 (1.001-1.035)
[2024-09-08 20:30] VITALS: BP 144/74; PULSE 81; RESP 13; O2SAT 96
[2024-09-08 20:36] LABS: Alanine Aminotransferase 48 U/L (6-35); Albumin Level 4.4 g/dL (3.5-5.1); Alkaline Phosphatase 66 U/L (38-126); Anion Gap 9 mmol/L (4-12); Aspartate Amino Transferase 59 U/L (14-36); Bilirubin,Total 0.6 mg/dL (0.2-1.3); Blood Urea Nitrogen 11 mg/dL (7-17); Calcium 9.5 mg/dL (8.4-10.2); Carbon Dioxide 28 mmol/L (22-30); Chloride 102 mmol/L (98-107); Estimated CRCL calculation 58 ml/min; Estimated Glomerular Filt Rate 49; Glucose 114 mg/dL (65-110); Potassium 4.3 mmol/L (3.4-5.0); Sodium 139 mmol/L (137-145); Total Protein 7.1 g/dL (6.3-8.2)
[2024-09-08] MEDS: ONDANSETRON INJ 4 MG/2 ML VIAL IV PUSH (20:47)
[2024-09-08] MEDS: MORPHINE SULFATE (*CRX) 4 MG/ML INJ IV PUSH ×2 (20:47→22:59)
[2024-09-08] MEDS: SODIUM CHLORIDE 0.9% IV 1,000 ML 999 ML IV CONT (20:49)
[2024-09-08] MEDS: cefTRIAXone 1 GM in SODIUM CHLORIDE 0.9% IV 50 ML 100 ML IVPB (20:54)
[2024-09-08 21:00] VITALS: BP 138/75; PULSE 86; RESP 13; O2SAT 98
[2024-09-08 21:15] VITALS: BP 120/62; PULSE 90; RESP 13; O2SAT 93
[2024-09-08 21:46] VITALS: BP 130/61; RESP 0; O2SAT 97
[2024-09-08] MEDS: SODIUM CHLORIDE 0.9% IV 1,000 ML 125 ML IV CONT (22:28)
--- NOTE | 2024-09-08 23:19 | PC.NURSE ---
Assumed care of pt. Report given by Yris DOVER.
[2024-09-09] VITALS (24 sets, daily range): BP systolic 100–151; BP diastolic 53–83; PULSE 72–99; RESP 11–24; TEMP 36.2–37.1; O2SAT 93–100; BMI 34.0
--- NOTE | 2024-09-09 03:54 | P.HP_ITS ---
H&P: HPI History of Present Illness Date/Time: 09/09/24 03:54 Chief Complaint: Right-sided abdominal pain, right flank pain Narrative: 58-year-old female with a history of hypertension hyperlipidemia COPD presents to [facility] ER on 09/08/2024 with a complaint of right-sided abdominal pain and flank pain for 1 day. She has had some nausea and vomiting although not the time of arrival. Associated with fever and chills urinary frequency urgency but no dysuria. Patient has had a history of kidney stone without procedural intervention. Two weeks prior to admission she had similar episode and went to [facility]. Reportedly a 6 mm stone found in her proximal ureter. She was sent home with [place] and [facility]. She follow-up with Urology Dr. Mendenhall had a CT scan which showed a stable kidney stone. She was supposed to have a follow-up outpatient stent placement on 09/10/2024 but canceled due to insurance worries. She also just finished a course of antibiotics. ER evaluation revealed mild leukocytosis with WBC 10.5. Serum creatinine 1.13. AST 59, ALT 48, urinalysis with 100 wbc's, leukocyte esterase 3+, urine bacteria 1+ CT abdomen pelvis without contrast demonstrating obstructing 4 mm and 3 mm stone in the proximal right ureter with mild right hydro ureter nephrosis. Urology consulted from ER. Given morphine 4 mg IV x1, normal saline 1 L, Zofran, ceftriaxone. Patient resting comfortably thereafter. Review of Systems Review of Systems: All systems reviewed & are unremarkable except as noted in HPI and below (Subjective/HPI) [facility] Past Medical History Medical History Asthma Surgical History Surgical History Trigger finger, right middle finger surgical release September 2010 History of rotator cuff surgery Right rotator cuff with DCE and October 2008 History of Family History Family History Father Asthma Heart disease Family history of thyroid disease Mother Hypertension Sibling Family history of thyroid disease Other Family history of cancer in father Social History Social History Smoking packs per day: 1 Smoking cigarettes per day: 20.0 Years smoked: 35 Smoking pack-years: 35.00 Smoking status: Former smoker Tobacco type: cigarettes Smoking end date: 09/04/21 Alcohol intake: never Substance use: never Living arrangements: with family Occupation/Education: occupation Additional occupation/education comments: [employer] care concerns: No Meds Home Medications and Allergies Home Medications ?Medication ?Instructions ?Recorded ?Confirmed ?Type cimetidine 800 mg tablet 800 mg PO BID 02/28/21 09/04/24 History loratadine 10 mg tablet (Claritin) 10 mg PO DAILY 02/28/21 09/04/24 History atorvastatin 20 mg tablet (Lipitor) 20 mg PO HS 09/04/24 09/04/24 History furosemide 20 mg tablet (Lasix) 20 mg PO DAILY PRN edema 09/04/24 09/04/24 History lactobacillus combination no.4 3 3,000 mmu cells PO DAILY 09/04/24 09/04/24 History billion cell capsule (Probiotic) lisinopril 2.5 mg tablet 2.5 mg PO DAILY 09/04/24 09/04/24 History omeprazole 40 mg capsule,delayed 40 mg PO DAILY 09/04/24 09/04/24 History release Allergies Allergy/AdvReac Type Severity Reaction Status Date / Time Sulfa (Sulfonamide AdvReac Mild Nausea and Verified 09/08/24 19:42 Antibiotics) Vomiting Vital Signs Vital Signs - 24 hr 09/08/24 19:53 09/08/24 20:16 09/08/24 20:30 Temperature 97.8 F Pulse Rate 87 84 81 Respiratory Rate 16 11 L 13 Blood Pressure 153/87 H 141/73 H 144/74 H Pulse Oximetry 96 97 96 Oxygen Delivery Room Air Oxygen Flow Rate 09/08/24 21:00 09/08/24 21:15 09/08/24 21:46 Temperature Pulse Rate 86 90 Respiratory Rate 13 13 0 L Blood Pressure 138/75 120/62 130/61 Pulse Oximetry 98 93 97 Oxygen Delivery Oxygen Flow Rate 09/09/24 00:33 09/09/24 01:45 Temperature Pulse Rate 99 Respiratory Rate 14 Blood Pressure 106/64 Pulse Oximetry 99 98 Oxygen Delivery Nasal Cannula Oxygen Flow Rate 2 Exam Const: General: comfortable and no acute distress Other: A&O x3, obese HENMT: Mouth: Yes moist mucous membranes Eyes: Pupils: Equal, round and reactive pupils present Neck: Neck: supple Resp: Effort & Inspection: normal respiratory effort Other: Bibasilar rales Cardio: Rate: regular rate Rhythm: regular rhythm GI: Inspection: non-distended GI Palp: Yes Soft to palpation Other: Right CVA tenderness : General: Yes bladder normal to palpation Neuro: Motor exam (neuro): 5/5 motor strength present throughout Extrem: General: edema H&P: Results Labs Labs: Short CBC 09/08/24 Range/Units 20:09 WBC 10.5 H (4.5-10.0) K/mm3 Hgb 12.5 (12.0-15.0) g/dL Hct 38.9 (37.0-47.0) % Plt Count 549 H (150-375) k/mm3 BMP 09/08/24 20:09 Sodium 139 Potassium 4.3 Chloride 102 Carbon Dioxide 28 BUN 11 Creatinine 1.13 H Glucose 114 H Calcium 9.5 Liver Function 09/08/24 Range/Units 20:09 Total Bilirubin 0.6 (0.2-1.3) mg/dL AST 59 H (14-36) U/L ALT 48 H (6-35) U/L Alkaline Phosphatase 66 (38-126) U/L Albumin 4.4 (3.5-5.1) g/dL Urine 09/08/24 Range/Units 20:09 Urine Color Yellow (Yellow) Urine Appearance Clear (Clear) Urine pH 6.5 (5.0-9.0) Ur Specific [place] 1.019 (1.001-1.035) Urine Protein Trace (Negative) mg/dL Urine Glucose (UA) Negative (Negative) mg/dL Assessment and Plan Assessment and plan (1) Calculus, ureteral: Code(s): N20.1 - Calculus of ureter Status: Acute (2) UTI (urinary tract infection): Qualifiers: Hematuria presence: without hematuria Urinary tract infection type: acute cystitis Qualified Code(s): N30.00 - Acute cystitis without hematuria Code(s): N39.0 - Urinary tract infection, site not specified Status: Acute Plan 58-year-old female with a history of hypertension hyperlipidemia COPD presents to [facility] ER on 09/08/2024 with a complaint of right-sided abdominal pain and flank pain for 1 day. She has had some nausea and vomiting although not the time of arrival. Associated with fever and chills urinary frequency urgency but no dysuria. Patient has had a history of kidney stone without procedural intervention. Two weeks prior to admission she had similar episode and went to [facility]. Reportedly a 6 mm stone found in her proximal ureter. She was sent home with [place] and [place] visa. She follow-up with Urology Dr. Mendenhall had a CT scan which showed a stable kidney stone. She was supposed to have a follow-up outpatient stent placement on 09/10/2024 but canceled due to insurance worries. She also just finished a course of antibiotics. ER evaluation revealed mild leukocytosis with WBC 10.5. Serum creatinine 1.13. AST 59, ALT 48, urinalysis with 100 wbc's, leukocyte esterase 3+, urine bacteria 1+ CT abdomen pelvis without contrast demonstrating obstructing 4 mm and 3 mm stone in the proximal right ureter with mild right hydro ureter nephrosis. Urology consulted from ER. Given morphine 4 mg IV x1, normal saline 1 L, Zofran, ceftriaxone. Patient resting comfortably thereafter. ----- Continue ceftriaxone. Urine and blood cultures pending. Trend leukocytosis. NPO, urology consultation. Pain regimen p.r.n.. Full code. Saline lock IV. SCDs. Hospitalist [facility] Advance Care Plan I have confirmed that the patient's Advanced Care Plan is present, code status is documented, or surrogate decision maker is listed in patient medical record.: Yes Medication Reconciliation I have utilized all available resources to obtain, update and review the patients current medications (includes all prescriptions, OTC, herbals, cannabis, and nutritional supplements).: Yes
[2024-09-09 06:41] LABS: Hematocrit 36.7 % (37.0-47.0); Hemoglobin 11.4 g/dL (12.0-15.0); Immature Granulocyte Percent A 0.4 % (0-0.5); Lymphocytes Absolute Auto 1.42 K/mm3 (0.9-3.2); Mean Corpuscular HGB Conc 31.1 g/dl (32-36); Mean Corpuscular Hemoglobin 29.2 pg (26-34); Mean Corpuscular Volume 94.1 fl (80-100); Nucleated Red Blood Cells Absolute Auto 0.000 K/mm3 (0.0-0.012); Nucleated Red Blood Cells Perc 0.0 % (0.0-0.2); Platelet Count Result 438 k/mm3 (150-375); Red Blood Count 3.90 M/mm3 (4.2-5.4); White Blood Count 12.0 K/mm3 (4.5-10.0)
[2024-09-09 07:07] LABS: Alanine Aminotransferase 41 U/L (6-35); Albumin Level 3.8 g/dL (3.5-5.1); Alkaline Phosphatase 54 U/L (38-126); Anion Gap 7 mmol/L (4-12); Aspartate Amino Transferase 47 U/L (14-36); Bilirubin,Total 0.7 mg/dL (0.2-1.3); Blood Urea Nitrogen 12 mg/dL (7-17); Calcium 8.8 mg/dL (8.4-10.2); Carbon Dioxide 27 mmol/L (22-30); Chloride 104 mmol/L (98-107); Estimated CRCL calculation 52 ml/min; Estimated Glomerular Filt Rate 43; Glucose 101 mg/dL (65-110); Magnesium 2.0 mg/dL (1.6-2.3); Potassium 4.2 mmol/L (3.4-5.0); Sodium 138 mmol/L (137-145); Total Protein 6.2 g/dL (6.3-8.2)
--- NOTE | 2024-09-09 08:29 | P.CONUR_ITS ---
Assessment and Plan Assessment and plan (1) Calculus, ureteral: Code(s): N20.1 - Calculus of ureter Status: Acute (2) UTI (urinary tract infection): Qualifiers: Hematuria presence: without hematuria Urinary tract infection type: a cute cystitis Qualified Code(s): N30.00 - Acute cystitis without hematuria Code(s): N39.0 - Urinary tract infection, site not specified Status: Acute (3) Hydroureteronephrosis: Code(s): N13.30 - Unspecified hydronephrosis Status: Acute Plan -CT abdomen pelvis without contrast reveals demonstrating obstructing 4 mm and 3 mm stone in the proximal right ureter with mild right hydro ureter nephrosis. -wbc 12 and cr trending up to 1.27 currently -urine culture pending. Culture driven antibiotics per primary service. -Discussed cystoscopy with right ureteral stent placement including risks and plan for outpatient definitive stone management after resolution of infection. Patient agreeable to urologic surgical intervention today. -Keep NPO -Plan for cystosopy, right ureteral stent placement today with Dr. Thomas. Urology Consult Note HPI Date Seen: 09/09/24 Requesting Physician: Nitza Santiago MD Primary Care Provider: Chanelle Martinez, [facility] Consult Narrative Narrative: Kisha Dey is a 58 year old female with a history of hypertension hyperlipidemia COPD presents to [facility] ER on 09/08/2024 with a complaint of right-sided abdominal pain and flank pain for 1 day. She has had some nausea and vomiting although not the time of arrival. Associated with fever and chills urinary frequency urgency but no dysuria. Patient has had a history of kidney stone without procedural intervention. Two weeks prior to admission she had similar episode and went to [facility]. Reportedly a 6 mm stone found in her proximal ureter. She was sent home with [place] and [place]. She follow-up with Urology Dr. Mendenhall had a CT scan which showed a stable kidney stone. She was supposed to have a follow-up outpatient stent placement on 09/10/2024 but canceled due to insurance worries. She also just finished a course of antibiotics. ER evaluation revealed mild leukocytosis with WBC 10.5. Serum creatinine 1.13. AST 59, ALT 48, urinalysis with 100 wbc's, leukocyte esterase 3+, urine bacteria 1+ CT abdomen pelvis without contrast demonstrating obstructing 4 mm and 3 mm stone in the proximal right ureter with mild right hydro ureter nephrosis. Urology consulted from ER. Given morphine 4 mg IV x1, normal saline 1 L, Zofran, ceftriaxone. Patient resting comfortably thereafter. Review of Systems 2 Review of Systems: All systems reviewed & are unremarkable except as noted in HPI and below PMFSH Past Medical History Medical History Asthma Surgical History Surgical History Trigger finger, right middle finger surgical release September 2010 History of rotator cuff surgery Right rotator cuff with DCE and October 2008 History of Family History Family History Father Asthma Heart disease Family history of thyroid disease Mother Hypertension Sibling Family history of thyroid disease Other Family history of cancer in father Social History Social History Smoking packs per day: 1 Smoking cigarettes per day: 20.0 Years smoked: 35 Smoking pack-years: 35.00 Smoking status: Former smoker Tobacco type: cigarettes Smoking end date: 09/04/21 Alcohol intake: never Substance use: never Living arrangements: with family Occupation/Education: occupation Additional occupation/education comments: [employer] Spiritual care concerns: No Meds Home Medications and Allergies Home Medications ?Medication ?Instructions ?Recorded ?Confirmed ?Type cimetidine 800 mg tablet 800 mg PO BID 02/28/21 09/09/24 History loratadine 10 mg tablet (Claritin) 10 mg PO DAILY 02/28/21 09/09/24 History atorvastatin 20 mg tablet (Lipitor) 20 mg PO HS 09/04/24 09/09/24 History furosemide 20 mg tablet (Lasix) 20 mg PO DAILY PRN edema 09/04/24 09/09/24 History lactobacillus combination no.4 3 3,000 mmu cells PO DAILY 09/04/24 09/09/24 History billion cell capsule (Probiotic) lisinopril 2.5 mg tablet 2.5 mg PO DAILY 09/04/24 09/09/24 History omeprazole 40 mg capsule,delayed 40 mg PO DAILY 09/04/24 09/09/24 History release Allergies Allergy/AdvReac Type Severity Reaction Status Date / Time Sulfa (Sulfonamide AdvReac Mild Nausea and Verified 09/09/24 09:12 Antibiotics) Vomiting Vital Signs Vital Signs - 24 hr 09/08/24 19:53 09/08/24 20:16 09/08/24 20:30 Temperature 97.8 F Pulse Rate 87 84 81 Respiratory Rate 16 11 L 13 Blood Pressure 153/87 H 141/73 H 144/74 H Pulse Oximetry 96 97 96 Oxygen Delivery Room Air Oxygen Flow Rate 09/08/24 21:00 09/08/24 21:15 09/08/24 21:46 Temperature Pulse Rate 86 90 Respiratory Rate 13 13 0 L Blood Pressure 138/75 120/62 130/61 Pulse Oximetry 98 93 97 Oxygen Delivery Oxygen Flow Rate 09/09/24 00:33 09/09/24 01:45 09/09/24 02:46 Temperature Pulse Rate 99 Respiratory Rate 14 Blood Pressure 106/64 103/62 Pulse Oximetry 99 98 98 Oxygen Delivery Nasal Cannula Oxygen Flow Rate 2 09/09/24 03:00 09/09/24 03:15 09/09/24 03:30 Temperature Pulse Rate Respiratory Rate Blood Pressure 102/64 103/68 103/66 Pulse Oximetry 99 98 Oxygen Delivery Oxygen Flow Rate 09/09/24 03:45 09/09/24 04:00 09/09/24 04:16 Temperature Pulse Rate Respiratory Rate Blood Pressure 102/70 119/72 105/58 L Pulse Oximetry 100 100 99 Oxygen Delivery Oxygen Flow Rate 09/09/24 04:46 09/09/24 05:01 09/09/24 06:35 Temperature Pulse Rate 82 Respiratory Rate 20 Blood Pressure 106/57 L 100/53 L 102/58 L Pulse Oximetry 100 100 100 Oxygen Delivery Oxygen Flow Rate Exam 2 Const: General: no acute distress Eyes: General: appearance normal, both eyes and all related structures Resp: Effort & Inspection: normal respiratory effort Skin: General skin exam: normal color and no rashes or lesions noted W ounds: no wounds noted Neuro: Speech: normal speech Psych: Speech and movement: Normal speech and movement present Results Labs 09/09/24 06:33 09/09/24 06:33 Labs: Short CBC 09/08/24 09/09/24 Range/Units 20:09 06:33 WBC 10.5 H 12.0 H (4.5-10.0) K/mm3 Hgb 12.5 11.4 L (12.0-15.0) g/dL Hct 38.9 36.7 L (37.0-47.0) % Plt Count 549 H 438 H (150-375) k/mm3 BMP 09/08/24 09/09/24 20:09 06:33 Sodium 139 138 Potassium 4.3 4.2 Chloride 102 104 Carbon Dioxide 28 27 BUN 11 12 Creatinine 1.13 H 1.27 H Glucose 114 H 101 Calcium 9.5 8.8 Liver Function 09/08/24 09/09/24 Range/Units 20:09 06:33 Total Bilirubin 0.6 0.7 (0.2-1.3) mg/dL AST 59 H 47 H (14-36) U/L ALT 48 H 41 H (6-35) U/L Alkaline Phosphatase 66 54 (38-126) U/L Albumin 4.4 3.8 (3.5-5.1) g/dL Urine 09/08/24 Range/Units 20:09 Urine Color Yellow (Yellow) Urine Appearance Clear (Clear) Urine pH 6.5 (5.0-9.0) Ur Specific [place] 1.019 (1.001-1.035) Urine Protein Trace (Negative) mg/dL Urine Glucose (UA) Negative (Negative) mg/dL
--- NOTE | 2024-09-09 08:57 | ADMGEN ---
This patient, Kisha Dey, was admitted to [facility] Surg Room 316-02. Patient/family oriented to hospital policies and general routines including ID bracelet, bed and alarms, visiting hours, pain management, procedures, bathroom and other care routines, personal items, smoking policy, room service/diet, and visiting hours. Information on how to activate the Rapid Response Team has been discussed. Patient/Family are encouraged to report perceived risks to care and to ask questions if they do not understand what they are told or what they should do.
--- NOTE | 2024-09-09 09:40 | ECG_ITS ---
Test Date: 2024-09-09 09:58:50 Measurements Intervals [place] Rate: 82 P: 39 AK: 170 QRS: 5 QRSD: 82 T: 11 QT: 344 QTc: 403 Interpretive Statements SINUS RHYTHM No previous ECG available for comparison Electronically Signed On 09-09-2024 12:48:23 CDT by Yemi Santana M.D.
[2024-09-09] MEDS: cefTRIAXone 2 GM in SODIUM CHLORIDE 0.9% IV 100 ML 200 ML IVPB (10:20)
[2024-09-09] MEDS: LACTATED RINGERS 1,000 ML 30 ML IV CONT (11:20)
--- NOTE | 2024-09-09 11:43 | WPDANESEPPF ---
Anes - Initial Pre Proc Eval Procedure: Operation Date: 09/09/24 12:30 Proposed Procedures p Cystoscopy, Right Stent Placement - Isidro Thomas MD Date/Time: 09/09/24 11:43 Surgeon: Nitza Santiago MD Pre Op Diagnosis: Ureteral stone Patient Data Age: 58 Gender: F Height: 1.7 m Weight: 98.5 kg Last Vital Signs Temp 97.2 F L 09/09/24 08:45 Pulse 78 09/09/24 08:45 Resp 14 09/09/24 08:45 BP 116/59 L 09/09/24 08:45 Pulse Ox 99 09/09/24 08:45 O2 Del Method Nasal Cannula 09/09/24 01:45 O2 Flow Rate 2 09/09/24 01:45 Allergies Allergy/AdvReac Type Severity Reaction Status Date / Time Sulfa (Sulfonamide AdvReac Mild Nausea and Verified 09/09/24 11:40 Antibiotics) Vomiting Home Medications ?Medication ?Instructions ?Recorded ?Confirmed ?Type cimetidine 800 mg tablet 800 mg PO BID 02/28/21 09/09/24 History loratadine 10 mg tablet (Claritin) 10 mg PO DAILY 02/28/21 09/09/24 History atorvastatin 20 mg tablet (Lipitor) 20 mg PO HS 09/04/24 09/09/24 History furosemide 20 mg tablet (Lasix) 20 mg PO DAILY PRN edema 09/04/24 09/09/24 History lactobacillus combination no.4 3 3,000 mmu cells PO DAILY 09/04/24 09/09/24 History billion cell capsule (Probiotic) lisinopril 2.5 mg tablet 2.5 mg PO DAILY 09/04/24 09/09/24 History omeprazole 40 mg capsule,delayed 40 mg PO DAILY 09/04/24 09/09/24 History release Laboratory Tests 09/08/24 09/08/24 09/08/24 20:07 20:09 21:58 WBC 10.5 H K/mm3 (4.5-10.0) RBC 4.30 M/mm3 (4.2-5.4) Hgb 12.5 g/dL (12.0-15.0) Hct 38.9 % (37.0-47.0) MCV 90.5 fl (80-100) MCH 29.1 pg (26-34) MCHC 32.1 g/dl (32-36) RDW 12.9 % (11.5-14.5) Plt Count 549 H k/mm3 (150-375) MPV 9.6 fl (7.4-10.4) Immature Gran % (Auto) 0.6 H % (0-0.5) Neut % (Auto) 75.1 H % (45.5-73.1) Lymph % (Auto) 12.5 L % (18.3-44.2) [place] % (Auto) 10.4 H % (2.6-8.5) Eos % (Auto) 0.6 % (0-4.4) Baso % (Auto) 0.8 % (0.2-1.2) Lymph # (Auto) 1.32 K/mm3 (0.9-3.2) [place] # (Auto) 1.1 H K/mm3 (0.1-0.6) Eos # (Auto) 0.1 K/mm3 (0-0.3) Baso # (Auto) 0.1 K/mm3 (0.0-0.1) Abs Immat Gran (auto) 0.06 H K/mm3 (0.00-0.031) Absolute Neuts (auto) 7.9 H K/mm3 (1.3-6.7) Absolute Nucleated RBC 0.000 K/mm3 (0.0-0.012) Nucleated RBC % 0.0 % (0.0-0.2) Sodium 139 mmol/L (137-145) Potassium 4.3 mmol/L (3.4-5.0) Chloride 102 mmol/L (98-107) Carbon Dioxide 28 mmol/L (22-30) Anion Gap 9 mmol/L (4-12) BUN 11 mg/dL (7-17) Creatinine 1.13 H mg/dL (0.7-1.0) Estim Creat Clear Calc 58 ml/min Estimated GFR 49 L (59 - ) Glucose 114 H mg/dL (65-110) Lactic Acid 0.8 mmol/L (0.7-2.0) Calcium 9.5 mg/dL (8.4-10.2) Magnesium Total Bilirubin 0.6 mg/dL (0.2-1.3) AST 59 H U/L (14-36) ALT 48 H U/L (6-35) Alkaline Phosphatase 66 U/L (38-126) Total Protein 7.1 g/dL (6.3-8.2) Albumin 4.4 g/dL (3.5-5.1) Urine Color Yellow (Yellow) Urine Appearance Clear (Clear) Urine pH 6.5 (5.0-9.0) Ur Specific [place] 1.019 (1.001-1.035) Urine Protein Trace mg/dL (Negative) Urine Glucose (UA) Negative mg/dL (Negative) Urine Ketones Trace H mg/dL (Negative) Ur Blood (Man) Negative (Negative) Urine Nitrate Negative (Negative) Urine Bilirubin Negative (Negative) Urine Urobilinogen 1.0 mg/dL (<2.0) Leukocyte Esterase Rfl 3+ H MARINO/UL (Negative) Urine RBC 0-2 /hpf (0-2) Urine WBC >100 H /hpf (0-3) Ur Squamous Epith Cells Occasional /hpf (Few) Urine Bacteria 1+ H /hpf Urine Casts 0-2 POC Urine HCG, Qual Negative (Negative) 09/09/24 06:33 WBC 12.0 H K/mm3 (4.5-10.0) RBC 3.90 L M/mm3 (4.2-5.4) Hgb 11.4 L g/dL (12.0-15.0) Hct 36.7 L % (37.0-47.0) MCV 94.1 fl (80-100) MCH 29.2 pg (26-34) MCHC 31.1 L g/dl (32-36) RDW 13.2 % (11.5-14.5) Plt Count 438 H k/mm3 (150-375) MPV 9.6 fl (7.4-10.4) Immature Gran % (Auto) 0.4 % (0-0.5) Neut % (Auto) 73.5 H % (45.5-73.1) Lymph % (Auto) 11.9 L % (18.3-44.2) [place] % (Auto) 12.5 H % (2.6-8.5) Eos % (Auto) 0.9 % (0-4.4) Baso % (Auto) 0.8 % (0.2-1.2) Lymph # (Auto) 1.42 K/mm3 (0.9-3.2) [place] # (Auto) 1.5 H K/mm3 (0.1-0.6) Eos # (Auto) 0.1 K/mm3 (0-0.3) Baso # (Auto) 0.1 K/mm3 (0.0-0.1) Abs Immat Gran (auto) 0.05 H K/mm3 (0.00-0.031) Absolute Neuts (auto) 8.8 H K/mm3 (1.3-6.7) Absolute Nucleated RBC 0.000 K/mm3 (0.0-0.012) Nucleated RBC % 0.0 % (0.0-0.2) Sodium 138 mmol/L (137-145) Potassium 4.2 mmol/L (3.4-5.0) Chloride 104 mmol/L (98-107) Carbon Dioxide 27 mmol/L (22-30) Anion Gap 7 mmol/L (4-12) BUN 12 mg/dL (7-17) Creatinine 1.27 H mg/dL (0.7-1.0) Estim Creat Clear Calc 52 ml/min Estimated GFR 43 L (59 - ) Glucose 101 mg/dL (65-110) Lactic Acid Calcium 8.8 mg/dL (8.4-10.2) Magnesium 2.0 mg/dL (1.6-2.3) Total Bilirubin 0.7 mg/dL (0.2-1.3) AST 47 H U/L (14-36) ALT 41 H U/L (6-35) Alkaline Phosphatase 54 U/L (38-126) Total Protein 6.2 L g/dL (6.3-8.2) Albumin 3.8 g/dL (3.5-5.1) Urine Color Urine Appearance Urine pH Ur Specific [place] Urine Protein Urine Glucose (UA) Urine Ketones Ur Blood (Man) Urine Nitrate Urine Bilirubin Urine Urobilinogen Leukocyte Esterase Rfl Urine RBC Urine WBC Ur Squamous Epith Cells Urine Bacteria Urine Casts POC Urine HCG, Qual Patient hx anesthesia problems: none Family hx anesthesia problems: none Results Review: All pre-operative results and documents have been reviewed as part of the pre-operative evaluation. [facility] Past Medical History Medical History Asthma Surgical History Surgical History Trigger finger, right middle finger surgical release September 2010 History of rotator cuff surgery Right rotator cuff with DCE and October 2008 History of Family History Family History Father Asthma Heart disease Family history of thyroid disease Mother Hypertension Sibling Family history of thyroid disease Other Family history of cancer in father Social History Social History Smoking packs per day: 1 Smoking cigarettes per day: 20.0 Years smoked: 35 Smoking pack-years: 35.00 Smoking status: Former smoker Alcohol intake: never Substance use: never Substance use type: does not use Do You Feel Safe in your Home?: Yes Lack of Transportation: No Lack of Food: Never True Current Housing: I Have Housing Concerned About Future Housing: No Difficulty Paying Gas/Electric Bills: No Difficulty Paying for Meds: No Currently Unemployed: No Education: Trade/Vocational Certificate Difficulty w/ Childcare or Family Care: No Living arrangements: with family Occupation/Education: occupation Additional occupation/education comments: [employer] Spiritual care concerns: No Anes - Eval Final PreProcedure Day of Procedure 09/09/24 11:43 Patient weight: obese Heart: regular rate and rhythm Lungs: clear to auscultation Airway: Mallampati scale class II Neurological: alert and oriented Last oral intake: >/= 8 hours ASA classification: III Emergent: no Anesthetic plan: proceed Anesthesia type and monitoring: general LMA and standard monitoring Results Review: All pre-operative results and documents have been reviewed as part of the pre-operative evaluation. Informed Consent: The patient's anesthetic plan and its attendant risks and benefits were discussed with the patient/family/POA. Questions were solicited and answers provided to the satisfaction of the patient/family/POA.
--- NOTE | 2024-09-09 12:21 | PM.IMPN ---
Progress Note: A&P Assessment and Plan (1) Calculus, ureteral: Code(s): N20.1 - Calculus of ureter Status: Acute (2) UTI (urinary tract infection): Qualifiers: Hematuria presence: without hematuria Urinary tract infection type: acute cystitis Qualified Code(s): N30.00 - Acute cystitis without hematuria Code(s): N39.0 - Urinary tract infection, site not specified Status: Acute Plan complicated uti in setting of kidney stone Continue IV Abx IVF pain management follow culture results R sided Obstructing kidney stones with hydronephrosis found on Ct urology team on board . 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 ER on 09/08/2024 with a complaint of right-sided abdominal pain and flank pain for 1 day. She has had some nausea and vomiting although not the time of arrival. Associated with fever and chills urinary frequency urgency but no dysuria. Patient has had a history of kidney stone without procedural intervention. Two weeks prior to admission she had similar episode and went to [facility]. Reportedly a 6 mm stone found in her proximal ureter. She was sent home with [place] and [place]. She follow-up with Urology Dr. Mendenhall had a CT scan which showed a stable kidney stone. She was supposed to have a follow-up outpatient stent placement on 09/10/2024 but canceled due to insurance worries. She also just finished a course of antibiotics. ER evaluation revealed mild leukocytosis with WBC 10.5. Serum creatinine 1.13. AST 59, ALT 48, urinalysis with 100 wbc's, leukocyte esterase 3+, urine bacteria 1+ CT abdomen pelvis without contrast demonstrating obstructing 4 mm and 3 mm stone in the proximal right ureter with mild right hydro ureter nephrosis. Urology consulted from ER. Given morphine 4 mg IV x1, normal saline 1 L, Zofran, ceftriaxone. Patient resting comfortably thereafter 09/09/24 Patient was seen and examined at bedside. she is feeling better. her abd pain is better. urology team on board. plan for possible stent placement today. follow urine and blood culture Review of Systems Review of Systems: All systems reviewed & are unremarkable except as noted in HPI and below (Subjective/HPI) Exam Const: General: comfortable and no acute distress Other: A&O x3, obese HENMT: Mouth: Yes moist mucous membranes Eyes: Pupils: Equal, round and reactive pupils present Neck: Neck: supple Resp: Effort & Inspection: normal respiratory effort Other: Bibasilar rales Cardio: Rate: regular rate Rhythm: regular rhythm GI: Inspection: non-distended Other: Right CVA tenderness : General: Yes bladder normal to palpation Bimanual exam- vagina & uterus: bladder normal to palpation Neuro: Cranial nerves: Yes Equal, round and reactive pupils present Motor exam (neuro): 5/5 motor strength present throughout Extrem: General: edema Objective Data Vital Signs Vital Signs: Vital Signs - 24 hr 09/08/24 19:53 09/08/24 20:16 09/08/24 20:30 Temperature 97.8 F Pulse Rate 87 84 81 Respiratory Rate 16 11 L 13 Blood Pressure 153/87 H 141/73 H 144/74 H Pulse Oximetry 96 97 96 Oxygen Delivery Room Air Oxygen Flow Rate 09/08/24 21:00 09/08/24 21:15 09/08/24 21:46 Temperature Pulse Rate 86 90 Respiratory Rate 13 13 0 L Blood Pressure 138/75 120/62 130/61 Pulse Oximetry 98 93 97 Oxygen Delivery Oxygen Flow Rate 09/09/24 00:33 09/09/24 01:45 09/09/24 02:46 Temperature Pulse Rate 99 Respiratory Rate 14 Blood Pressure 106/64 103/62 Pulse Oximetry 99 98 98 Oxygen Delivery Nasal Cannula Oxygen Flow Rate 2 09/09/24 03:00 09/09/24 03:15 09/09/24 03:30 Temperature Pulse Rate Respiratory Rate Blood Pressure 102/64 103/68 103/66 Pulse Oximetry 99 98 Oxygen Delivery Oxygen Flow Rate 09/09/24 03:45 09/09/24 04:00 09/09/24 04:16 Temperature Pulse Rate Respiratory Rate Blood Pressure 102/70 119/72 105/58 L Pulse Oximetry 100 100 99 Oxygen Delivery Oxygen Flow Rate 09/09/24 04:46 09/09/24 05:01 09/09/24 06:35 Temperature Pulse Rate 82 Respiratory Rate 20 Blood Pressure 106/57 L 100/53 L 102/58 L Pulse Oximetry 100 100 100 Oxygen Delivery Oxygen Flow Rate 09/09/24 08:45 Temperature 97.2 F L Pulse Rate 78 Respiratory Rate 14 Blood Pressure 116/59 L Pulse Oximetry 99 Oxygen Delivery Oxygen Flow Rate Intake/Output Intake/Output: Intake & Output 09/06/24 09/07/24 09/08/24 09/09/24 23:59 23:59 23:59 23:59 Intake Total 1050 1000 Balance 1050 1000 Meds/Results Medications: Active Medications Generic Name Dose Route Start Last Admin Trade Name Freq PRN Reason Stop Dose Admin Fentanyl Citrate 25 mcg 09/09/24 11:50 Fentanyl Citrate Inj (*Crx) 100 Mcg/2 Ml Vial IV PUSH Q2M PRN Pain Ceftriaxone Sodium 2 gm/ 100 mls @ 200 mls/hr 09/09/24 09:00 09/09/24 10:20 Sodium Chloride IVPB 200 mls/hr Q24H DORINA Administration Lactated Ringer's 1,000 mls @ 30 mls/hr 09/09/24 11:50 09/09/24 11:20 Lr - Lactated Ringers Iv IV CONT 30 mls/hr .Q24H DORINA Administration Lactated Ringer's 1,000 mls @ 30 mls/hr 09/09/24 11:50 Lr - Lactated Ringers Iv IV CONT .Q24H DORINA Morphine Sulfate 4 mg 09/08/24 21:08 09/08/24 22:59 Morphine Sulfate (*Crx) 4 Mg/Ml Inj IV PUSH 4 mg Q2H PRN Administration Pain Rated 7-10 Ondansetron HCl 4 mg 09/08/24 21:08 Ondansetron Inj 4 Mg/2 Ml Vial IV PUSH Q4H PRN Nausea Ondansetron HCl 4 mg 09/09/24 11:50 Ondansetron Inj 4 Mg/2 Ml Vial IV PUSH ONCE PRN Nausea Radiology Results: ITS Impressions Abdomen/Pelvis CT 09/08/24 20:42 IMPRESSION: 1. Obstructing 4 mm and 3 mm stones in the proximal right ureter with mild and right hydroureteronephrosis. Correlate with urinalysis to exclude associated ascending urinary tract infection. Labs Labs: Laboratory Results - last 24 hr 09/08/24 09/08/24 09/08/24 20:07 20:09 21:58 WBC 10.5 H RBC 4.30 Hgb 12.5 Hct 38.9 MCV 90.5 MCH 29.1 MCHC 32.1 RDW 12.9 Plt Count 549 H MPV 9.6 Immature Gran % (Auto) 0.6 H Neut % (Auto) 75.1 H Lymph % (Auto) 12.5 L [place] % (Auto) 10.4 H Eos % (Auto) 0.6 Baso % (Auto) 0.8 Lymph # (Auto) 1.32 [place] # (Auto) 1.1 H Eos # (Auto) 0.1 Baso # (Auto) 0.1 Abs Immat Gran (auto) 0.06 H Absolute Neuts (auto) 7.9 H Absolute Nucleated RBC 0.000 Nucleated RBC % 0.0 Sodium 139 Potassium 4.3 Chloride 102 Carbon Dioxide 28 Anion Gap 9 BUN 11 Creatinine 1.13 H Estim Creat Clear Calc 58 Estimated GFR 49 L Glucose 114 H Lactic Acid 0.8 Calcium 9.5 Magnesium Total Bilirubin 0.6 AST 59 H ALT 48 H Alkaline Phosphatase 66 Total Protein 7.1 Albumin 4.4 Urine Color Yellow Urine Appearance Clear Urine pH 6.5 Ur Specific [place] 1.019 Urine Protein Trace Urine Glucose (UA) Negative Urine Ketones Trace H Ur Blood (Man) Negative Urine Nitrate Negative Urine Bilirubin Negative Urine Urobilinogen 1.0 Leukocyte Esterase Rfl 3+ H Urine RBC 0-2 Urine WBC >100 H Ur Squamous Epith Cells Occasional Urine Bacteria 1+ H Urine Casts 0-2 POC Urine HCG, Qual Negative 09/09/24 06:33 WBC 12.0 H RBC 3.90 L Hgb 11.4 L Hct 36.7 L MCV 94.1 MCH 29.2 MCHC 31.1 L RDW 13.2 Plt Count 438 H MPV 9.6 Immature Gran % (Auto) 0.4 Neut % (Auto) 73.5 H Lymph % (Auto) 11.9 L [place] % (Auto) 12.5 H Eos % (Auto) 0.9 Baso % (Auto) 0.8 Lymph # (Auto) 1.42 [place] # (Auto) 1.5 H Eos # (Auto) 0.1 Baso # (Auto) 0.1 Abs Immat Gran (auto) 0.05 H Absolute Neuts (auto) 8.8 H Absolute Nucleated RBC 0.000 Nucleated RBC % 0.0 Sodium 138 Potassium 4.2 Chloride 104 Carbon Dioxide 27 Anion Gap 7 BUN 12 Creatinine 1.27 H Estim Creat Clear Calc 52 Estimated GFR 43 L Glucose 101 Lactic Acid Calcium 8.8 Magnesium 2.0 Total Bilirubin 0.7 AST 47 H ALT 41 H Alkaline Phosphatase 54 Total Protein 6.2 L Albumin 3.8 Urine Color Urine Appearance Urine pH Ur Specific [place] Urine Protein Urine Glucose (UA) Urine Ketones Ur Blood (Man) Urine Nitrate Urine Bilirubin Urine Urobilinogen Leukocyte Esterase Rfl Urine RBC Urine WBC Ur Squamous Epith Cells Urine Bacteria Urine Casts POC Urine HCG, Qual
--- NOTE | 2024-09-09 12:25 | WPDHPUPDATE1 ---
History and Physical Update Update Date/Time: 09/09/24 12:25 History and Physical has been reviewed, including an updated exam of the patient. There are NO changes in the patient's condition. Risks, benefits, and alternatives have been discussed and questions answered. Patient agrees to proceed with procedure.
[2024-09-09] MEDS: LIDOCAINE 2% JELLY 5 ML TUBE 1 APPLIC MUCOUS MEM (13:09)
--- NOTE | 2024-09-09 13:21 | P.OP_ITS ---
Procedure Note - Detailed Date of Procedure 09/09/24 Pre-op Diagnosis Right Ureteral stone Post-op Diagnosis Same Procedure Performed Cystoscopy, right retrograde pyelogram, right ureteral stent insertion Surgeon Isidro Thomas MD Anesthesia General Indications Impacted right proximal ureteral stone, moderate right hydronephrosis Description of Procedure Informed consents obtained. Patient taken to the operating room She was given preoperative IV antibiotics on the floor. She was induced anesthesia. She was prepped and draped in the normal sterile fashion in the dorsal lithotomy position. A 22 F cystoscope was inserted through the urethra into the bladder. Inspection of the bladder revealed no mucosal abnormalities outside the expected changes from her known infection. She had bilateral orthotopic ureteral orifices. We cannulated the right ureteral orifice and a retrograde pyelogram was performed showing moderate right hydronephrosis. The stone was not seen on plain film. We were able to pass a wire beyond the level of the stone. The sto ne was impacted in the proximal ureter however with some manipulation we were able to pass the 6 F stent over the wire into the renal pelvis. The stent was left with a curl in the renal pelvis across the bladder the bladder was emptied lidocaine instilled. Patient awakened and taken to PACU in stable condition Will plan outpatient definitive stone management ureteroscopy/laser lithotripsy once her infection has cleared Complications No immediate complications Condition Stable Disposition PACU
[2024-09-09] MEDS: fentaNYL CITRATE INJ (*CRX) 100 MCG/2 ML VIAL 25 MCG IV PUSH ×2 (13:52→13:55)
[2024-09-09] MEDS: PANTOPRAZOLE 40 MG TABLET PO (20:51)
[2024-09-09] MEDS: ATORVASTATIN 20 MG TABLET PO (20:51)
[2024-09-09] MEDS: FAMOTIDINE 20 MG TABLET PO (20:51)
[2024-09-09] MEDS: HYDROcodone/acetaminophen (*CRX) 5-325 MG TABLET 1 TAB PO (21:34)
[2024-09-10] VITALS (8 sets, daily range): BP systolic 117–159; BP diastolic 62–87; PULSE 64–84; RESP 16–24; TEMP 35.6–36.6; O2SAT 95–99
[2024-09-10 06:08] LABS: Hematocrit 36.7 % (37.0-47.0); Hemoglobin 11.3 g/dL (12.0-15.0); Mean Corpuscular HGB Conc 30.8 g/dl (32-36); Mean Corpuscular Hemoglobin 28.9 pg (26-34); Mean Corpuscular Volume 93.9 fl (80-100); Platelet Count Result 454 k/mm3 (150-375); Red Blood Count 3.91 M/mm3 (4.2-5.4); White Blood Count 13.1 K/mm3 (4.5-10.0)
[2024-09-10 06:32] LABS: Anion Gap 9 mmol/L (4-12); Blood Urea Nitrogen 14 mg/dL (7-17); Calcium 9.1 mg/dL (8.4-10.2); Carbon Dioxide 24 mmol/L (22-30); Chloride 104 mmol/L (98-107); Estimated CRCL calculation 65 ml/min; Estimated Glomerular Filt Rate 57; Glucose 107 mg/dL (65-110); Potassium 3.9 mmol/L (3.4-5.0); Sodium 137 mmol/L (137-145)
[2024-09-10] MEDS: PANTOPRAZOLE 40 MG TABLET PO ×2 (08:03→20:56)
[2024-09-10] MEDS: LORATADINE 10 MG TABLET PO (08:03)
[2024-09-10] MEDS: cefTRIAXone 2 GM in SODIUM CHLORIDE 0.9% IV 100 ML 200 ML IVPB (08:04)
[2024-09-10] MEDS: FAMOTIDINE 20 MG TABLET PO ×2 (08:04→20:56)
--- NOTE | 2024-09-10 08:47 | WPDUROPN2 ---
Progress Note: A&P Assessment and Plan (1) Hydroureteronephrosis: Code(s): N13.30 - Unspecified hydronephrosis Status: Acute (2) UTI (urinary tract infection): Qualifiers: Hematuria presence: without hematuria Urinary tract infection type: acute cystitis Qualified Code(s): N30.00 - Acute cystitis without hematuria Code(s): N39.0 - Urinary tract infection, site not specified Status: Acute (3) Calculus, ureteral: Code(s): N20.1 - Calculus of ureter Status: Acute Plan POD 1 Cystoscopy, right retrograde pyelogram, right ureteral stent insertion for Impacted right proximal ureteral stone, moderate right hydronephrosis -cr normalized today. -wbc continues to rise and is 13.1 today. urine and blood cultures pending. Antibiotic therapy per primary service. -Will plan outpatient definitive stone management ureteroscopy/laser lithotripsy once her infection has cleared Subjective Subjective Date/Time Seen: 09/10/24 08:47 Interval history: POD 1 Cystoscopy, right retrograde pyelogram, right ureteral stent insertion for Impacted right proximal ureteral stone, moderate right hydronephrosis Patient is feeling much better today. She is tolerating the stent without issue. no acute events overnight. Review of Systems Review of Systems: All systems reviewed & are unremarkable except as noted in HPI and below Exam Const: General: comfortable and no acute distress Eyes: General: appearance normal, both eyes and all related structures Skin: General skin exam: normal color Neuro: Speech: normal speech Psych: Mental Status: mental status grossly normal Affect: normal affect Objective Data Vital Signs Vital Signs: Vital Signs - 24 hr 09/09/24 13:23 09/09/24 13:35 09/09/24 13:45 Temperature 98.2 F Pulse Rate 78 72 Respiratory Rate 11 L 12 Blood Pressure 101/61 127/68 Pulse Oximetry 100 96 Oxygen Delivery Simple Face Mask Nasal Cannula Room Air Oxygen Flow Rate 8 2 09/09/24 13:50 09/09/24 14:05 09/09/24 14:19 Temperature 98.8 F Pulse Rate 78 72 75 Respiratory Rate 15 14 14 Blood Pressure 111/54 L 109/57 L 112/62 Pulse Oximetry 96 98 99 Oxygen Delivery Room Air Nasal Cannula Nasal Cannula Oxygen Flow Rate 2 2 09/09/24 14:40 09/09/24 14:55 09/09/24 15:25 Temperature 97.2 F L 97.2 F L 97.7 F Pulse Rate 79 87 72 Respiratory Rate 14 16 14 Blood Pressure 133/65 127/66 125/63 Pulse Oximetry 100 94 100 Oxygen Delivery Oxygen Flow Rate 09/09/24 16:25 09/09/24 20:00 09/09/24 20:45 Temperature 97.4 F L 97.9 F Pulse Rate 77 96 Respiratory Rate 16 24 H Blood Pressure 138/70 151/83 H Pulse Oximetry 97 95 Oxygen Delivery Room Air Oxygen Flow Rate 09/09/24 21:09 09/10/24 00:00 09/10/24 04:00 Temperature 97.9 F 97.9 F Pulse Rate 64 78 Respiratory Rate 24 H 16 Blood Pressure 117/62 141/76 H Pulse Oximetry 93 95 97 Oxygen Delivery Room Air Oxygen Flow Rate 09/10/24 07:48 Temperature 96.3 F L Pulse Rate 84 Respiratory Rate 17 Blood Pressure 159/87 H Pulse Oximetry 99 Oxygen Delivery Oxygen Flow Rate Intake/Output Intake/Output: Intake & Output 09/07/24 09/08/24 09/09/24 09/10/24 23:59 23:59 23:59 23:59 Intake Total 1050 1200 472 Balance 1050 1200 472 Meds/Results Medications: Active Medications Generic Name Dose Route Start Last Admin Trade Name Freq PRN Reason Stop Dose Admin Hydrocodone Bitart/Acetaminophen 1 tab 09/09/24 21:16 09/09/24 21:34 Hydrocodone/Acetaminophen (*Crx) 5-325 Mg Tablet PO 1 tab Q6H PRN Administration Pain Rated 4-6 Atorvastatin Calcium 20 mg 09/09/24 21:00 09/09/24 20:51 Atorvastatin 20 Mg Tablet PO 20 mg HS DORINA Administration Famotidine 20 mg 09/09/24 21:00 09/10/24 08:04 Famotidine 20 Mg Tablet PO 20 mg Q12HR DORINA Administration Fentanyl Citrate 25 mcg 09/09/24 11:50 09/09/24 13:55 Fentanyl Citrate Inj (*Crx) 100 Mcg/2 Ml Vial IV PUSH 25 mcg Q2M PRN Administration Pain Ceftriaxone Sodium 2 gm/ 100 mls @ 200 mls/hr 09/09/24 09:00 09/10/24 08:04 Sodium Chloride IVPB 200 mls/hr Q24H DORINA Administration Lactated Ringer's 1,000 mls @ 30 mls/hr 09/09/24 11:50 09/09/24 14:19 Lr - Lactated Ringers Iv IV CONT Infused .Q24H DORINA Infusion Lactated Ringer's 1,000 mls @ 30 mls/hr 09/09/24 11:50 09/09/24 18:48 Lr - Lactated Ringers Iv IV CONT Not Given .Q24H DORINA Loratadine 10 mg 09/10/24 09:00 09/10/24 08:03 Loratadine 10 Mg Tablet PO 10 mg DAILY DORINA Administration Morphine Sulfate 4 mg 09/08/24 21:08 09/08/24 22:59 Morphine Sulfate (*Crx) 4 Mg/Ml Inj IV PUSH 4 mg Q2H PRN Administration Pain Rated 7-10 Ondansetron HCl 4 mg 09/08/24 21:08 Ondansetron Inj 4 Mg/2 Ml Vial IV PUSH Q4H PRN Nausea Ondansetron HCl 4 mg 09/09/24 11:50 Ondansetron Inj 4 Mg/2 Ml Vial IV PUSH ONCE PRN Nausea Pantoprazole Sodium 40 mg 09/09/24 21:00 09/10/24 08:03 Pantoprazole 40 Mg Tablet PO 40 mg Q12HR DORINA Administration Radiology Results: ITS Impressions Abdomen/Pelvis CT 09/08/24 20:42 IMPRESSION: 1. Obstructing 4 mm and 3 mm stones in the proximal right ureter with mild and right hydroureteronephrosis. Correlate with urinalysis to exclude associated ascending urinary tract infection. Retrograde Pyelogram 09/09/24 15:19 IMPRESSION: 1. Right internal ureteral stent placement. Please refer to real-time procedural findings for details. Labs Labs: Laboratory Results - last 24 hr 09/10/24 05:37 WBC 13.1 H RBC 3.91 L Hgb 11.3 L Hct 36.7 L MCV 93.9 MCH 28.9 MCHC 30.8 L RDW 13.1 Plt Count 454 H MPV 10.1 Sodium 137 Potassium 3.9 Chloride 104 Carbon Dioxide 24 Anion Gap 9 BUN 14 Creatinine 1.00 Estim Creat Clear Calc 65 Estimated GFR 57 L Glucose 107 Calcium 9.1
--- NOTE | 2024-09-10 09:12 | WPDANESPN ---
Anes - Prog Note Post-Op Date/Time: 09/10/24 09:12 Cardiovascular status: normal Respiratory status: normal Airway patency: baseline Mental status: baseline Post-Op hydration status: normal Vital Signs: Last Vital Signs Temp 35.7 C L 09/10/24 07:48 Pulse 84 09/10/24 07:48 Resp 17 09/10/24 07:48 BP 159/87 H 09/10/24 07:48 Pulse Ox 99 09/10/24 07:48 O2 Del Method Room Air 09/09/24 21:09 O2 Flow Rate 2 09/09/24 14:19 Pain Score (VAS): 03/06 I/O: Intake & Output 09/09/24 09/10/24 09/10/24 23:59 07:59 15:59 Intake Total 472 Balance 472 Laboratory Tests 09/10/24 05:37 09/10/24 05:37 09/10/24 05:37 WBC 13.1 H RBC 3.91 L Hgb 11.3 L Hct 36.7 L MCV 93.9 MCH 28.9 MCHC 30.8 L RDW 13.1 Plt Count 454 H MPV 10.1 Sodium 137 Potassium 3.9 Chloride 104 Carbon Dioxide 24 Anion Gap 9 BUN 14 Creatinine 1.00 Estim Creat Clear Calc 65 Estimated GFR 57 L Glucose 107 Calcium 9.1 Post-procedural complaints: none Patient Feedback: Patient satisfied with anesthetic care.
--- NOTE | 2024-09-10 13:07 | PM.IMPN ---
Progress Note: A&P Assessment and Plan (1) Calculus, ureteral: Code(s): N20.1 - Calculus of ureter Status: Acute (2) UTI (urinary tract infection): Qualifiers: Hematuria presence: without hematuria Urinary tract infection type: acute cystitis Qualified Code(s): N30.00 - Acute cystitis without hematuria Code(s): N39.0 - Urinary tract infection, site not specified Status: Acute Plan complicated uti in setting of kidney stone WBC 13.1. will follow urine and blood culture results. increased Rocephin to 2gram/day IVF pain management follow culture results R sided Obstructing kidney stones with hydronephrosis found on Ct urology team on board . underwent cystoscopy with right ureteral stent placement 09/09/24 Charlie improving IVF continue to monitor HLD Statin HTN [employer] meds on hold with soft BP COPD home inhalers Subjective Date/time seen: 09/10/24 13:07 Interval history: per HPi: Narrative: 58-year-old female with a history of hypertension hyperlipidemia COPD presents to [facility] ER on 09/08/2024 with a complaint of right-sided abdominal pain and flank pain for 1 day. She has had some nausea and vomiting although not the time of arrival. Associated with fever and chills urinary frequency urgency but no dysuria. Patient has had a history of kidney stone without procedural intervention. Two weeks prior to admission she had similar episode and went to [facility] [address]. Reportedly a 6 mm stone found in her proximal ureter. She was sent home with [place] and Flomax. She follow-up with Urology Dr. Mendenhall had a CT scan which showed a stable kidney stone. She was supposed to have a follow-up outpatient stent placement on 09/10/2024 but canceled due to insurance worries. She also just finished a course of antibiotics. ER evaluation revealed mild leukocytosis with WBC 10.5. Serum creatinine 1.13. AST 59, ALT 48, urinalysis with 100 wbc's, leukocyte esterase 3+, urine bacteria 1+ CT abdomen pelvis without contrast demonstrating obstructing 4 mm and 3 mm stone in the proximal right ureter with mild right hydro ureter nephrosis. Urology consulted from ER. Given morphine 4 mg IV x1, normal saline 1 L, Zofran, ceftriaxone. Patient resting comfortably thereafter 09/09/24 Patient was seen and examined at bedside. she is feeling better. her abd pain is better. urology team on board. plan for possible stent placement today. follow urine and blood culture 09/10/24 Patient was seen and examined at bedside. denies any chest pain. SOB ,abd pain, N/V WBC 13.1. will follow urine and blood culture results. increased Rocephin to 2gram/day Review of Systems Review of Systems: All systems reviewed & are unremarkable except as noted in HPI and below (Subjective/HPI) Exam Const: General: comfortable and no acute distress Other: A&O x3, obese HENMT: Mouth: Yes moist mucous membranes Eyes: Pupils: Equal, round and reactive pupils present Neck: Neck: supple Resp: Effort & Inspection: normal respiratory effort Other: Bibasilar rales Cardio: Rate: regular rate Rhythm: regular rhythm GI: Inspection: non-distended Other: Right CVA tenderness : General: Yes bladder normal to palpation Bimanual exam- vagina & uterus: bladder normal to palpation Neuro: Cranial nerves: Yes Equal, round and reactive pupils present Motor exam (neuro): 5/5 motor strength present throughout Extrem: General: edema Objective Data Vital Signs Vital Signs: Vital Signs - 24 hr 09/09/24 13:23 09/09/24 13:35 09/09/24 13:45 Temperature 98.2 F Pulse Rate 78 72 Respiratory Rate 11 L 12 Blood Pressure 101/61 127/68 Pulse Oximetry 100 96 Oxygen Delivery Simple Face Mask Nasal Cannula Room Air Oxygen Flow Rate 8 2 09/09/24 13:50 09/09/24 14:05 09/09/24 14:19 Temperature 98.8 F Pulse Rate 78 72 75 Respiratory Rate 15 14 14 Blood Pressure 111/54 L 109/57 L 112/62 Pulse Oximetry 96 98 99 Oxygen Delivery Room Air Nasal Cannula Nasal Cannula Oxygen Flow Rate 2 2 09/09/24 14:40 09/09/24 14:55 09/09/24 15:25 Temperature 97.2 F L 97.2 F L 97.7 F Pulse Rate 79 87 72 Respiratory Rate 14 16 14 Blood Pressure 133/65 127/66 125/63 Pulse Oximetry 100 94 100 Oxygen Delivery Oxygen Flow Rate 09/09/24 16:25 09/09/24 20:00 09/09/24 20:45 Temperature 97.4 F L 97.9 F Pulse Rate 77 96 Respiratory Rate 16 24 H Blood Pressure 138/70 151/83 H Pulse Oximetry 97 95 Oxygen Delivery Room Air Oxygen Flow Rate 09/09/24 21:09 09/10/24 00:00 09/10/24 04:00 Temperature 97.9 F 97.9 F Pulse Rate 64 78 Respiratory Rate 24 H 16 Blood Pressure 117/62 141/76 H Pulse Oximetry 93 95 97 Oxygen Delivery Room Air Oxygen Flow Rate 09/10/24 07:48 09/10/24 08:00 09/10/24 12:00 Temperature 96.3 F L 97.7 F Pulse Rate 84 78 Respiratory Rate 17 16 Blood Pressure 159/87 H 128/67 Pulse Oximetry 99 99 96 Oxygen Delivery Room Air Oxygen Flow Rate Intake/Output Intake/Output: Intake & Output 09/07/24 09/08/24 09/09/24 09/10/24 23:59 23:59 23:59 23:59 Intake Total 1050 1200 590 Balance 1050 1200 590 Meds/Results Medications: Active Medications Generic Name Dose Route Start Last Admin Trade Name Freq PRN Reason Stop Dose Admin Hydrocodone Bitart/Acetaminophen 1 tab 09/09/24 21:16 09/09/24 21:34 Hydrocodone/Acetaminophen (*Crx) 5-325 Mg Tablet PO 1 tab Q6H PRN Administration Pain Rated 4-6 Atorvastatin Calcium 20 mg 09/09/24 21:00 09/09/24 20:51 Atorvastatin 20 Mg Tablet PO 20 mg HS DORINA Administration Famotidine 20 mg 09/09/24 21:00 09/10/24 08:04 Famotidine 20 Mg Tablet PO 20 mg Q12HR DORINA Administration Fentanyl Citrate 25 mcg 09/09/24 11:50 09/09/24 13:55 Fentanyl Citrate Inj (*Crx) 100 Mcg/2 Ml Vial IV PUSH 25 mcg Q2M PRN Administration Pain Ceftriaxone Sodium 2 gm/ 100 mls @ 200 mls/hr 09/09/24 09:00 09/10/24 08:04 Sodium Chloride IVPB 200 mls/hr Q24H DORINA Administration Lactated Ringer's 1,000 mls @ 30 mls/hr 09/09/24 11:50 09/10/24 11:30 Lr - Lactated Ringers Iv IV CONT Not Given .Q24H DORINA Lactated Ringer's 1,000 mls @ 30 mls/hr 09/09/24 11:50 07/17/25 11:30 Lr - Lactated Ringers Iv IV CONT Not Given .Q24H DORINA Loratadine 10 mg 09/10/24 09:00 09/10/24 08:03 Loratadine 10 Mg Tablet PO 10 mg DAILY DORINA Administration Morphine Sulfate 4 mg 09/08/24 21:08 09/08/24 22:59 Morphine Sulfate (*Crx) 4 Mg/Ml Inj IV PUSH 4 mg Q2H PRN Administration Pain Rated 7-10 Ondansetron HCl 4 mg 09/08/24 21:08 Ondansetron Inj 4 Mg/2 Ml Vial IV PUSH Q4H PRN Nausea Ondansetron HCl 4 mg 09/09/24 11:50 Ondansetron Inj 4 Mg/2 Ml Vial IV PUSH ONCE PRN Nausea Pantoprazole Sodium 40 mg 09/09/24 21:00 09/10/24 08:03 Pantoprazole 40 Mg Tablet PO 40 mg Q12HR DORINA Administration Radiology Results: ITS Impressions Abdomen/Pelvis CT 09/08/24 20:42 IMPRESSION: 1. Obstructing 4 mm and 3 mm stones in the proximal right ureter with mild and right hydroureteronephrosis. Correlate with urinalysis to exclude associated ascending urinary tract infection. Retrograde Pyelogram 09/09/24 15:19 IMPRESSION: 1. Right internal ureteral stent placement. Please refer to real-time procedural findings for details. Labs Labs: Laboratory Results - last 24 hr 09/10/24 05:37 WBC 13.1 H RBC 3.91 L Hgb 11.3 L Hct 36.7 L MCV 93.9 MCH 28.9 MCHC 30.8 L RDW 13.1 Plt Count 454 H MPV 10.1 Sodium 137 Potassium 3.9 Chloride 104 Carbon Dioxide 24 Anion Gap 9 BUN 14 Creatinine 1.00 Estim Creat Clear Calc 65 Estimated GFR 57 L Glucose 107 Calcium 9.1
[2024-09-10] MEDS: ATORVASTATIN 20 MG TABLET PO (20:56)
[2024-09-10] MEDS: HYDROcodone/acetaminophen (*CRX) 5-325 MG TABLET 1 TAB PO (20:56)
[2024-09-11 06:00] VITALS: BP 121/69; PULSE 79; RESP 20; TEMP 35.8; O2SAT 97
[2024-09-11 06:30] LABS: Hematocrit 34.4 % (37.0-47.0); Hemoglobin 10.8 g/dL (12.0-15.0); Mean Corpuscular HGB Conc 31.4 g/dl (32-36); Mean Corpuscular Hemoglobin 29.2 pg (26-34); Mean Corpuscular Volume 93.0 fl (80-100); Platelet Count Result 411 k/mm3 (150-375); Red Blood Count 3.70 M/mm3 (4.2-5.4); White Blood Count 9.7 K/mm3 (4.5-10.0)
[2024-09-11 06:50] LABS: Anion Gap 7 mmol/L (4-12); Blood Urea Nitrogen 13 mg/dL (7-17); Calcium 8.9 mg/dL (8.4-10.2); Carbon Dioxide 26 mmol/L (22-30); Chloride 106 mmol/L (98-107); Estimated CRCL calculation 76 ml/min; Estimated Glomerular Filt Rate > 60; Glucose 93 mg/dL (65-110); Potassium 3.6 mmol/L (3.4-5.0); Sodium 139 mmol/L (137-145)
[2024-09-11] MEDS: cefTRIAXone 2 GM in SODIUM CHLORIDE 0.9% IV 100 ML IVPB (09:16)
[2024-09-11] MEDS: PANTOPRAZOLE 40 MG TABLET PO ×2 (09:17→21:20)
[2024-09-11] MEDS: FAMOTIDINE 20 MG TABLET PO ×2 (09:18→21:20)
[2024-09-11] MEDS: LORATADINE 10 MG TABLET PO (09:18)
--- NOTE | 2024-09-11 11:12 | PM.IMPN ---
Progress Note: A&P Assessment and Plan (1) Calculus, ureteral: Code(s): N20.1 - Calculus of ureter Status: Acute (2) UTI (urinary tract infection): Qualifiers: Hematuria presence: without hematuria Urinary tract infection type: acute cystitis Qualified Code(s): N30.00 - Acute cystitis without hematuria Code(s): N39.0 - Urinary tract infection, site not specified Status: Acute Plan complicated uti in setting of kidney stone WBC 9.7. will follow urine and blood culture results. positive for EColi Rocephin to 2gram/day IVF pain management follow culture results R sided Obstructing kidney stones with hydronephrosis found on Ct urology team on board . underwent cystoscopy with right ureteral stent placement 09/09/24 Charlie improved received IVF continue to monitor acute anemia possible dilutional monitor H&H transfuse if Hb <7 HLD Statin HTN [employer] meds on hold with soft BP COPD home inhalers Subjective Date/time seen: 09/11/24 11:12 Interval history: per HPi: Narrative: 58-year-old female with a history of hypertension hyperlipidemia COPD presents to [facility] ER on 09/08/2024 with a complaint of right-sided abdominal pain and flank pain for 1 day. She has had some nausea and vomiting although not the time of arrival. Associated with fever and chills urinary frequency urgency but no dysuria. Patient has had a history of kidney stone without procedural intervention. Two weeks prior to admission she had similar episode and went to [facility]. Reportedly a 6 mm stone found in her proximal ureter. She was sent home with [place] and Flomax. She follow-up with Urology Dr. Mendenhall had a CT scan which showed a stable kidney stone. She was supposed to have a follow-up outpatient stent placement on 09/10/2024 but canceled due to insurance worries. She also just finished a course of antibiotics. ER evaluation revealed mild leukocytosis with WBC 10.5. Serum creatinine 1.13. AST 59, ALT 48, urinalysis with 100 wbc's, leukocyte esterase 3+, urine bacteria 1+ CT abdomen pelvis without contrast demonstrating obstructing 4 mm and 3 mm stone in the proximal right ureter with mild right hydro ureter nephrosis. Urology consulted from ER. Given morphine 4 mg IV x1, normal saline 1 L, Zofran, ceftriaxone. Patient resting comfortably thereafter 09/09/24 Patient was seen and examined at bedside. she is feeling better. her abd pain is better. urology team on board. plan for possible stent placement today. follow urine and blood culture 09/10/24 Patient was seen and examined at bedside. denies any chest pain. SOB ,abd pain, N/V WBC 13.1. will follow urine and blood culture results. increased Rocephin to 2gram/day 09/11/24 Patient was seen and examined at bedside. she is feeling fine. denies any chest pain, abd pain, N/V. no acute event overnight. U/C positive for EColi. sensitivity pending Review of Systems Review of Systems: All systems reviewed & are unremarkable except as noted in HPI and below (Subjective/HPI) Exam Const: General: comfortable and no acute distress Other: A&O x3, obese HENMT: Mouth: Yes moist mucous membranes Eyes: Pupils: Equal, round and reactive pupils present Neck: Neck: supple Resp: Effort & Inspection: normal respiratory effort Other: Bibasilar rales Cardio: Rate: regular rate Rhythm: regular rhythm GI: Inspection: non-distended Other: Right CVA tenderness : General: Yes bladder normal to palpation Bimanual exam- vagina & uterus: bladder normal to palpation Neuro: Cranial nerves: Yes Equal, round and reactive pupils present Motor exam (neuro): 5/5 motor strength present throughout Extrem: General: edema Objective Data Vital Signs Vital Signs: Vital Signs - 24 hr 09/10/24 12:00 09/10/24 16:00 09/10/24 19:30 Temperature 97.7 F 96.1 F L Pulse Rate 78 79 Respiratory Rate 16 17 Blood Pressure 128/67 120/69 Pulse Oximetry 96 98 Oxygen Delivery Room Air 09/10/24 21:12 09/10/24 21:18 09/11/24 06:00 Temperature 96.4 F L 96.4 F L Pulse Rate 84 79 Respiratory Rate 20 20 Blood Pressure 134/68 121/69 Pulse Oximetry 97 97 97 Oxygen Delivery Room Air 09/11/24 08:00 Temperature Pulse Rate Respiratory Rate Blood Pressure Pulse Oximetry Oxygen Delivery Room Air Intake/Output Intake/Output: Intake & Output 09/08/24 09/09/24 09/10/24 09/11/24 23:59 23:59 23:59 23:59 Intake Total 1050 1200 930 370 Balance 1050 1200 930 370 Meds/Results Medications: Active Medications Generic Name Dose Route Start Last Admin Trade Name Freq PRN Reason Stop Dose Admin Hydrocodone Bitart/Acetaminophen 1 tab 09/09/24 21:16 09/10/24 20:56 Hydrocodone/Acetaminophen (*Crx) 5-325 Mg Tablet PO 1 tab Q6H PRN Administration Pain Rated 4-6 Atorvastatin Calcium 20 mg 09/09/24 21:00 09/10/24 20:56 Atorvastatin 20 Mg Tablet PO 20 mg HS DORINA Administration Famotidine 20 mg 09/09/24 21:00 09/11/24 09:18 Famotidine 20 Mg Tablet PO 20 mg Q12HR DORINA Administration Fentanyl Citrate 25 mcg 09/09/24 11:50 09/09/24 13:55 Fentanyl Citrate Inj (*Crx) 100 Mcg/2 Ml Vial IV PUSH 25 mcg Q2M PRN Administration Pain Ceftriaxone Sodium 2 gm/ 100 mls @ 200 mls/hr 09/09/24 09:00 09/11/24 09:16 Sodium Chloride IVPB 100 mls/hr Q24H DORINA Administration Loratadine 10 mg 09/10/24 09:00 09/11/24 09:18 Loratadine 10 Mg Tablet PO 10 mg DAILY DORINA Administration Morphine Sulfate 4 mg 09/08/24 21:08 09/08/24 22:59 Morphine Sulfate (*Crx) 4 Mg/Ml Inj IV PUSH 4 mg Q2H PRN Administration Pain Rated 7-10 Ondansetron HCl 4 mg 09/08/24 21:08 Ondansetron Inj 4 Mg/2 Ml Vial IV PUSH Q4H PRN Nausea Ondansetron HCl 4 mg 09/09/24 11:50 Ondansetron Inj 4 Mg/2 Ml Vial IV PUSH ONCE PRN Nausea Pantoprazole Sodium 40 mg 09/09/24 21:00 09/11/24 09:17 Pantoprazole 40 Mg Tablet PO 40 mg Q12HR DORINA Administration Radiology Results: ITS Impressions Abdomen/Pelvis CT 09/08/24 20:42 IMPRESSION: 1. Obstructing 4 mm and 3 mm stones in the proximal right ureter with mild and right hydroureteronephrosis. Correlate with urinalysis to exclude associated ascending urinary tract infection. Retrograde Pyelogram 09/09/24 15:19 IMPRESSION: 1. Right internal ureteral stent placement. Please refer to real-time procedural findings for details. Labs Labs: Laboratory Results - last 24 hr 09/11/24 06:06 WBC 9.7 RBC 3.70 L Hgb 10.8 L Hct 34.4 L MCV 93.0 MCH 29.2 MCHC 31.4 L RDW 13.1 Plt Count 411 H MPV 10.0 Sodium 139 Potassium 3.6 Chloride 106 Carbon Dioxide 26 Anion Gap 7 BUN 13 Creatinine 0.85 Estim Creat Clear Calc 76 Estimated GFR > 60 Glucose 93 Calcium 8.9
[2024-09-11] MEDS: ENOXAPARIN 40 MG/0.4 ML SYRINGE SUB-Q (11:57)
[2024-09-11 14:00] VITALS: BP 136/58; PULSE 84; RESP 16; TEMP 35.7; O2SAT 97
[2024-09-11] MEDS: ATORVASTATIN 20 MG TABLET PO (21:20)
[2024-09-11] MEDS: HYDROcodone/acetaminophen (*CRX) 5-325 MG TABLET 1 TAB PO (21:24)
[2024-09-11 21:43] VITALS: BP 157/73; PULSE 85; RESP 20; TEMP 35.8; O2SAT 96
[2024-09-12 06:00] VITALS: BP 142/71; PULSE 76; RESP 20; TEMP 36.9; O2SAT 95
[2024-09-12 06:04] LABS: Hematocrit 33.6 % (37.0-47.0); Hemoglobin 10.6 g/dL (12.0-15.0); Mean Corpuscular HGB Conc 31.5 g/dl (32-36); Mean Corpuscular Hemoglobin 29.1 pg (26-34); Mean Corpuscular Volume 92.3 fl (80-100); Platelet Count Result 481 k/mm3 (150-375); Red Blood Count 3.64 M/mm3 (4.2-5.4); White Blood Count 7.8 K/mm3 (4.5-10.0)
[2024-09-12 06:39] LABS: Anion Gap 7 mmol/L (4-12); Blood Urea Nitrogen 10 mg/dL (7-17); Calcium 9.1 mg/dL (8.4-10.2); Carbon Dioxide 29 mmol/L (22-30); Chloride 104 mmol/L (98-107); Estimated CRCL calculation 74 ml/min; Estimated Glomerular Filt Rate > 60; Glucose 83 mg/dL (65-110); Potassium 3.5 mmol/L (3.4-5.0); Sodium 140 mmol/L (137-145)
[2024-09-12 07:30] VITALS: PULSE 76; RESP 20; O2SAT 95
[2024-09-12] MEDS: cefTRIAXone 2 GM in SODIUM CHLORIDE 0.9% IV 100 ML IVPB (09:24)
[2024-09-12] MEDS: ENOXAPARIN 40 MG/0.4 ML SYRINGE SUB-Q (09:24)
[2024-09-12] MEDS: FAMOTIDINE 20 MG TABLET PO (09:25)
[2024-09-12] MEDS: LORATADINE 10 MG TABLET PO (09:25)
[2024-09-12] MEDS: PANTOPRAZOLE 40 MG TABLET PO (09:25)
--- NOTE | 2024-09-12 12:29 | PM.IMPN ---
Progress Note: A&P Assessment and Plan (1) Calculus, ureteral: Code(s): N20.1 - Calculus of ureter Status: Acute (2) UTI (urinary tract infection): Qualifiers: Hematuria presence: without hematuria Urinary tract infection type: acute cystitis Qualified Code(s): N30.00 - Acute cystitis without hematuria Code(s): N39.0 - Urinary tract infection, site not specified Status: Acute Plan complicated uti in setting of kidney stone WBC 7.8 will follow urine and blood culture results. positive for EColi Rocephin to 2gram/day IVF pain management follow culture results leucocytosis secondary to uti improving R sided Obstructing kidney stones with hydronephrosis found on Ct urology team on board . underwent cystoscopy with right ureteral stent placement 09/09/24 Charlie improved received IVF continue to monitor acute anemia possible dilutional monitor H&H transfuse if Hb <7 HLD Statin HTN [employer] meds on hold with soft BP COPD home inhalers obesity lifestyle modification Subjective Date/time seen: 09/12/24 12:29 Interval history: per HPi: Narrative: 58-year-old female with a history of hypertension hyperlipidemia COPD presents to [facility] ER on 09/08/2024 with a complaint of right-sided abdominal pain and flank pain for 1 day. She has had some nausea and vomiting although not the time of arrival. Associated with fever and chills urinary frequency urgency but no dysuria. Patient has had a history of kidney stone without procedural intervention. Two weeks prior to admission she had similar episode and went to [facility]. Reportedly a 6 mm stone found in her proximal ureter. She was sent home with [place] and [facility]. She follow-up with Urology Dr. Mendenhall had a CT scan which showed a stable kidney stone. She was supposed to have a follow-up outpatient stent placement on 09/10/2024 but canceled due to insurance worries. She also just finished a course of antibiotics. ER evaluation revealed mild leukocytosis with WBC 10.5. Serum creatinine 1.13. AST 59, ALT 48, urinalysis with 100 wbc's, leukocyte esterase 3+, urine bacteria 1+ CT abdomen pelvis without contrast demonstrating obstructing 4 mm and 3 mm stone in the proximal right ureter with mild right hydro ureter nephrosis. Urology consulted from ER. Given morphine 4 mg IV x1, normal saline 1 L, Zofran, ceftriaxone. Patient resting comfortably thereafter 09/09/24 Patient was seen and examined at bedside. she is feeling better. her abd pain is better. urology team on board. plan for possible stent placement today. follow urine and blood culture 09/10/24 Patient was seen and examined at bedside. denies any chest pain. SOB ,abd pain, N/V WBC 13.1. will follow urine and blood culture results. increased Rocephin to 2gram/day 09/11/24 Patient was seen and examined at bedside. she is feeling fine. denies any chest pain, abd pain, N/V. no acute event overnight. U/C positive for EColi. sensitivity pending 09/12 patient was seen and examined at bedside. she is feeling fine, denies any pain. no acute event overnight. culture results pending. Review of Systems Review of Systems: All systems reviewed & are unremarkable except as noted in HPI and below (Subjective/HPI) Exam Const: General: comfortable and no acute distress Other: A&O x3, obese HENMT: Mouth: Yes moist mucous membranes Eyes: Pupils: Equal, round and reactive pupils present Neck: Neck: supple Resp: Effort & Inspection: normal respiratory effort Other: Bibasilar rales Cardio: Rate: regular rate Rhythm: regular rhythm GI: Inspection: non-distended Other: Right CVA tenderness : General: Yes bladder normal to palpation Bimanual exam- vagina & uterus: bladder normal to palpation Neuro: Cranial nerves: Yes Equal, round and reactive pupils present Motor exam (neuro): 5/5 motor strength present throughout Extrem: General: edema Objective Data Vital Signs Vital Signs: Vital Signs - 24 hr 09/11/24 14:00 09/11/24 21:43 09/12/24 06:00 Temperature 96.3 F L 96.4 F L 98.4 F Pulse Rate 84 85 76 Respiratory Rate 16 20 20 Blood Pressure 136/58 L 157/73 H 142/71 H Pulse Oximetry 97 96 95 Oxygen Delivery 09/12/24 07:30 Temperature Pulse Rate 76 Respiratory Rate 20 Blood Pressure Pulse Oximetry 95 Oxygen Delivery Room Air Intake/Output Intake/Output: Intake & Output 09/09/24 09/10/24 09/11/24 09/12/24 23:59 23:59 23:59 23:59 Intake Total 1652 754 7980 220 Balance 9107 336 3342 220 Meds/Results Medications: Active Medications Generic Name Dose Route Start Last Admin Trade Name Freq PRN Reason Stop Dose Admin Hydrocodone Bitart/Acetaminophen 1 tab 09/09/24 21:16 09/11/24 21:24 Hydrocodone/Acetaminophen (*Crx) 5-325 Mg Tablet PO 1 tab Q6H PRN Administration Pain Rated 4-6 Atorvastatin Calcium 20 mg 09/09/24 21:00 09/11/24 21:20 Atorvastatin 20 Mg Tablet PO 20 mg HS DORINA Administration Enoxaparin Sodium 40 mg 09/11/24 12:00 09/12/24 09:24 Enoxaparin 40 Mg/0.4 Ml Syringe SUB-Q 40 mg DAILY DORINA Administration Famotidine 20 mg 09/09/24 21:00 09/12/24 09:25 Famotidine 20 Mg Tablet PO 20 mg Q12HR DORINA Administration Fentanyl Citrate 25 mcg 09/09/24 11:50 09/09/24 13:55 Fentanyl Citrate Inj (*Crx) 100 Mcg/2 Ml Vial IV PUSH 25 mcg Q2M PRN Administration Pain Ceftriaxone Sodium 2 gm/ 100 mls @ 200 mls/hr 09/09/24 09:00 09/12/24 10:24 Sodium Chloride IVPB Infused Q24H DORINA Infusion Loratadine 10 mg 09/10/24 09:00 09/12/24 09:25 Loratadine 10 Mg Tablet PO 10 mg DAILY DORINA Administration Morphine Sulfate 4 mg 09/08/24 21:08 09/08/24 22:59 Morphine Sulfate (*Crx) 4 Mg/Ml Inj IV PUSH 4 mg Q2H PRN Administration Pain Rated 7-10 Ondansetron HCl 4 mg 09/08/24 21:08 Ondansetron Inj 4 Mg/2 Ml Vial IV PUSH Q4H PRN Nausea Ondansetron HCl 4 mg 09/09/24 11:50 Ondansetron Inj 4 Mg/2 Ml Vial IV PUSH ONCE PRN Nausea Pantoprazole Sodium 40 mg 09/09/24 21:00 09/12/24 09:25 Pantoprazole 40 Mg Tablet PO 40 mg Q12HR DORINA Administration Radiology Results: ITS Impressions Abdomen/Pelvis CT 09/08/24 20:42 IMPRESSION: 1. Obstructing 4 mm and 3 mm stones in the proximal right ureter with mild and right hydroureteronephrosis. Correlate with urinalysis to exclude associated ascending urinary tract infection. Retrograde Pyelogram 09/09/24 15:19 IMPRESSION: 1. Right internal ureteral stent placement. Please refer to real-time procedural findings for details. Labs Labs: Laboratory Results - last 24 hr 09/12/24 05:33 WBC 7.8 RBC 3.64 L Hgb 10.6 L Hct 33.6 L MCV 92.3 MCH 29.1 MCHC 31.5 L RDW 13.1 Plt Count 481 H MPV 9.8 Sodium 140 Potassium 3.5 Chloride 104 Carbon Dioxide 29 Anion Gap 7 BUN 10 Creatinine 0.88 Estim Creat Clear Calc 74 Estimated GFR > 60 Glucose 83 Calcium 9.1
--- NOTE | 2024-09-12 12:58 | PM.DS ---
DS: Admitting Diagnosis Discharge Date 09/12/24 Admitting Diagnosis UTI, Kidney stone DS: Discharge Diagnosis Discharge Diagnosis (1) Calculus, ureteral: Code(s): N20.1 - Calculus of ureter Status: Acute (2) UTI (urinary tract infection): Qualifiers: Hematuria presence: without hematuria Urinary tract infection type: acute cystitis Qualified Code(s): N30.00 - Acute cystitis without hematuria Code(s): N39.0 - Urinary tract infection, site not specified Status: Acute Plan complicated uti in setting of kidney stone WBC 7.8 pstient needs to follow urine and blood culture results. positive for EColi Rocephin to 2gram/day changed to omnicef IVF pain management follow culture results leucocytosis secondary to uti improving R sided Obstructing kidney stones with hydronephrosis found on Ct urology team on board . 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 She has had some nausea and vomiting although not the time of arrival. Associated with fever and chills urinary frequency urgency but no dysuria. Patient has had a history of kidney stone without procedural intervention. Two weeks prior to admission she had similar episode and went to [facility]. Reportedly a 6 mm stone found in her proximal ureter. She was sent home with [place] and [facility]. She follow-up with Urology Dr. Mendenhall had a CT scan which showed a stable kidney stone. She was supposed to have a follow-up outpatient stent placement on 09/10/2024 but canceled due to insurance worries. She also just finished a course of antibiotics. ER evaluation revealed mild leukocytosis with WBC 10.5. Serum creatinine 1.13. AST 59, ALT 48, urinalysis with 100 wbc's, leukocyte esterase 3+, urine bacteria 1+ CT abdomen pelvis without contrast demonstrating obstructing 4 mm and 3 mm stone in the proximal right ureter with mild right hydro ureter nephrosis. Urology consulted from ER. Given morphine 4 mg IV x1, normal saline 1 L, Zofran, ceftriaxone. Patient resting comfortably thereafter 09/09/24 urology team on board. patient underwent stent placement. follow urine and blood culture 09/11/24 Patient was seen and examined at bedside. she is feeling fine. denies any chest pain, abd pain, N/V. no acute event overnight. U/C positive for EColi. sensitivity pending 09/12 patient was seen and examined at bedside. she is feeling fine, denies any pain. no acute event overnight. culture results pending. WBC is back to john. patient does not want to stay longer and wanted to Dc on Po abx and follow with culture results. will discharge on empric Abx Omnicef. Status at Discharge Overall status at discharge: patient is progressing back to baseline Time Spent with Patient Time attestation: Total time spent providing and/or coordinating discharge services: Time spent: Greater than 30 minutes Exam Const: General: comfortable and no acute distress Other: A&O x3, obese HENMT: Mouth: Yes moist mucous membranes Eyes: Pupils: Equal, round and reactive pupils present Neck: Neck: supple Resp: Effort & Inspection: normal respiratory effort Other: Bibasilar rales Cardio: Rate: regular rate Rhythm: regular rhythm GI: Inspection: non-distended Other: Right CVA tenderness : General: Yes bladder normal to palpation Bimanual exam- vagina & uterus: bladder normal to palpation Neuro: Cranial nerves: Yes Equal, round and reactive pupils present Motor exam (neuro): 5/5 motor strength present throughout Extrem: General: edema DS: Data Data Completed and Pending Labs on day of discharge: Labs from last 24 hours 09/12/24 05:33 WBC 7.8 RBC 3.64 L Hgb 10.6 L Hct 33.6 L MCV 92.3 MCH 29.1 MCHC 31.5 L RDW 13.1 Plt Count 481 H MPV 9.8 Sodium 140 Potassium 3.5 Chloride 104 Carbon Dioxide 29 Anion Gap 7 BUN 10 Creatinine 0.88 Estim Creat Clear Calc 74 Estimated GFR > 60 Glucose 83 Calcium 9.1 Preliminary micro results at discharge 09/08/24 22:27 Blood Culture - Preliminary Blood 09/08/24 21:58 Blood Culture - Preliminary Blood 09/08/24 20:09 - Preliminary Urine Clean Catch Escherichia coli. Discharge Plan Discharge Attending physician on discharge: Ewelina Watson Consulting providers: Ewelina Watson; Jason Yi Discharging Clinician: Ewelina Watson Anticipated Discharge Date/Time: 09/12/24 13:04 Patient Disposition: Home Activity: as tolerated Diet: heart healthy Discharge Instructions: Please follow with PCP in one week. follow with urology clinic in 1-2 weeks check your blood pressure and heart rate regularly and report to the PCP. continue ABx for one more week. follow with final culture result as outpatient Patient Instructions: Antibiotic Form Patient Language: Ukrainian Stand Alone Forms: General Discharge Information Follow-up/Referrals: Isidro Thomas MD [Physician] - Call for Appointment Juan,LEILA Murray [Primary Care Provider] - 1 Week Discharge Medications: New cefdinir 300 mg capsule 300 mg PO Q12H Qty: 14 0RF Continued loratadine [Claritin] 10 mg tablet 10 mg PO DAILY cimetidine 800 mg tablet 800 mg PO BID Rx Instructions: administer with meals lisinopril 2.5 mg tablet 2.5 mg PO DAILY atorvastatin [Lipitor] 20 mg tablet 20 mg PO HS omeprazole 40 mg capsule,delayed release(DR/EC) 40 mg PO DAILY furosemide [Lasix] 20 mg tablet 20 mg PO DAILY PRN (Reason: edema) Patient Comments: Says uses maybe once a week. Probiotic 3 billion cell capsule 3,000 mmu cells PO DAILY Rx Instructions: administer with a meal Date of admission: 09/08/24 21:08 Primary Care Provider: JuanChanelle Admitting Provider: Nitza Santiago Attending physician on admission: Nitza Santiago Condition: Stable
== END 2024-09-12 14:15 | disposition home or self-care (01) ==
LOC: ANHED 21:08 → ANH3MEDSUR 09-09 07:11
PROVIDERS: Urology; Admitting Provider General Practice; Emergency Provider Physician Assistant; PCP Nurse Practitioner; Visit Provider Internal Medicine
PROC: (CPT 52352; principal; 2024-09-09 12:30)
DX: N13.2 Hydronephrosis with renal and ureteral calculous obstruction (principal); N30.00 Acute cystitis without hematuria; I10 Essential (primary) hypertension; E78.5 Hyperlipidemia, unspecified; J44.9 Chronic obstructive pulmonary disease, unspecified; Z87.891 Personal history of nicotine dependence; J45.909 Unspecified asthma, uncomplicated
CPT/HCPCS: 52332; 36415; 74176; 74420; 80048; 80053; 81001; 81025; 83605; 83735; 85025; 85027; 87040; 87086; 93005; 96361; 96365; 96375; 96376; 99285; A9270; C1758; C1769; C2617; G0378; J0696; J1100; J1650; J2003; J2250; J2270; J2405; J2704; J3010; J7030; J7120; Q9966

== ENCOUNTER 2024-11-30 10:28 | Outpatient (CLI) | payer OTHER, SELFPAY ==
[2024-11-30 11:32] LABS: Anion Gap 8 mmol/L (4-12); Blood Urea Nitrogen 19 mg/dL (7-17); Calcium 9.4 mg/dL (8.4-10.2); Carbon Dioxide 30 mmol/L (22-30); Chloride 101 mmol/L (98-107); Estimated Glomerular Filt Rate 47; Glucose 92 mg/dL (65-110); Potassium 4.1 mmol/L (3.4-5.0); Sodium 139 mmol/L (137-145)
== END 2024-11-30 10:29 | disposition home or self-care (01) ==
LOC: ANHSURGERY 10:34
PROVIDERS: Anesthesiology; PCP Nurse Practitioner; Visit Provider Urology
DX: Z79.899 Other long term (current) drug therapy (principal); Z01.818 Encounter for other preprocedural examination
CPT/HCPCS: 36415; 80048